=== PATIENT | male | born 1950 | race Hispanic/Latino ===

== ENCOUNTER → 2017-07-30 | Outpatient (CLI) | payer MEDICARE ==
[~2017-07-30] MED LIST: ALBUMIN (HUMAN) 25% 200 ML IV SCH; DOXA2TAB2 PO; FOLI1TAB15 PO; IRON1CAP30 PO; LACT10SO PO; MILK500C PO; OMEP20CA10 PO; SPIR50TA3 PO
[2017-07-30 08:18] LABS: BASOPHILS % (AUTO) 0.8 % (0.0-5.0); EOSINOPHILS % (AUTO) 0.7 % (0.0-8.0); HEMATOCRIT 25.9 % (42-54); LYMPHOCYTES % (AUTO) 14.7 % (21.0-51.0); MEAN CORPUSCULAR HEMOGLOBIN 36.3 pg (27.0-33.0); MEAN CORPUSCULAR HGB CONC 36.5 g/dL (32.0-36.0); MEAN CORPUSCULAR VOLUME 99.4 fL (79-99); MONOCYTES % (AUTO) 11.3 % (3.0-13.0); NEUTROPHILS % (AUTO) 72.5 % (40.0-77.0); PLATELET COUNT (AUTO) 62 K/uL (130-400); RED CELL DISTRIBUTION WIDTH 15.2 % (11.0-15.5); WHITE BLOOD COUNT (AUTO) 7.3 K/uL (4.8-10.8)
[2017-07-30 08:40] LABS: INR 1.3 (0.85-1.15); PROTHROMBIN TIME 13.6 SEC (9.6-11.6)
[2017-07-30 09:00] LABS: ALBUMIN 2.7 g/dL (3.5-5.0); BILIRUBIN,TOTAL 1.6 mg/dL (0.2-1.0); CREATININE 1.8 mg/dL (0.5-1.5); POTASSIUM 4.7 mmol/L (3.5-5.1); TOTAL PROTEIN, SERUM 6.3 g/dL (6.0-8.3)
[2017-07-30 09:12] LABS: PLATELET MORPHOLOGY COMMENT DECREASED
[2017-07-30 11:28] LABS: ALBUMIN,BODY FLUID < 0.6 g/dL
[2017-07-30 11:33] LABS: APPEARANCE BODY FLUID CLEAR (CLEAR); BODY FLUID RBC 147 /cu. mm.; BODY FLUID WBC 69 /cu. mm.; COLOR,BODY FLUID YELLOW (LT YELLOW); SPECIMENTYPE,BODY FLUID ASCITES; TOTAL VOLUME,BODY FLUID 6500 mL
[2017-07-30 11:51] LABS: BF LYMPHOCYTE 8 %; BF MESOTHELIAL 72 %; BF MONOCYTE 13 %
== END | disposition home or self-care (01) ==
LOC: RAH 07:38
PROVIDERS: ATTEND Internal Medicine
DX: R18.8 Other ascites (principal); K74.60 Unspecified cirrhosis of liver
CPT/HCPCS: 36415; 49083; 76700; 80053; 82042; 84157; 85025; 85610; 87071; 87205; 88108; 88305; 89051; 93975; P9046

== ENCOUNTER → 2017-08-12 | Outpatient (CLI) | payer MEDICARE ==
[~2017-08-12] MED LIST changes: +ALBUMIN (HUMAN) 25% 200 ML IV ONE; -ALBUMIN (HUMAN) 25% 200 ML IV SCH; -SPIR50TA3 PO; +SPIR50TA5 PO
[2017-08-12 12:16] LABS: APPEARANCE BODY FLUID CLEAR (CLEAR); COLOR,BODY FLUID YELLOW (LT YELLOW); SPECIMENTYPE,BODY FLUID ASCITES; TOTAL VOLUME,BODY FLUID 400 mL
[2017-08-12 12:17] LABS: BODY FLUID RBC 83 /cu. mm.; BODY FLUID WBC 60 /cu. mm.
[2017-08-12 12:20] LABS: BF LYMPHOCYTE 23 %; BF MESOTHELIAL 32 %; BF MONOCYTE 38 %
== END ==
LOC: RAH 08:26
PROVIDERS: ATTEND Internal Medicine
DX: R18.8 Other ascites (principal)
CPT/HCPCS: 49083; 87071; 87205; 88108; 88305; 88341; 88342; 89051; P9046

== ENCOUNTER → 2017-08-18 | Outpatient (CLI) | payer MEDICARE ==
[~2017-08-18] MED LIST changes: -ALBUMIN (HUMAN) 25% 200 ML IV ONE; +SPIR50TA3 PO; -SPIR50TA5 PO
== END | disposition home or self-care (01) ==
LOC: OIH 09:32
PROVIDERS: ATTEND Internal Medicine
DX: K74.60 Unspecified cirrhosis of liver (principal); R18.8 Other ascites; R16.1 Splenomegaly, not elsewhere classified; K57.30 Diverticulosis of large intestine without perforation or abscess without bleeding
CPT/HCPCS: 74176

== ENCOUNTER → 2017-08-20 | Outpatient (CLI) | payer MEDICARE ==
[~2017-08-20] MED LIST changes: +ALBUMIN (HUMAN) 25% 200 ML IV SCH
[2017-08-20 09:43] LABS: EOSINOPHILS % (AUTO) 1.3 % (0.0-8.0); HEMATOCRIT 29.5 % (42-54); LYMPHOCYTES % (AUTO) 16.5 % (21.0-51.0); MEAN CORPUSCULAR HEMOGLOBIN 36.3 pg (27.0-33.0); MEAN CORPUSCULAR HGB CONC 36.9 g/dL (32.0-36.0); MEAN CORPUSCULAR VOLUME 98.4 fL (79-99); MONOCYTES % (AUTO) 13.9 % (3.0-13.0); NEUTROPHILS % (AUTO) 67.3 % (40.0-77.0); PLATELET COUNT (AUTO) 78 K/uL (130-400); RED CELL DISTRIBUTION WIDTH 15.6 % (11.0-15.5); WHITE BLOOD COUNT (AUTO) 5.6 K/uL (4.8-10.8)
[2017-08-20 09:52] LABS: CREATININE 1.3 mg/dL (0.5-1.5); POTASSIUM 4.8 mmol/L (3.5-5.1)
[2017-08-20 09:59] LABS: ALBUMIN 2.6 g/dL (3.5-5.0); BILIRUBIN,TOTAL 1.9 mg/dL (0.2-1.0); TOTAL PROTEIN, SERUM 6.4 g/dL (6.0-8.3)
[2017-08-20 10:13] LABS: INR 1.34 (0.85-1.15)
[2017-08-20 16:42] LABS: APPEARANCE BODY FLUID CLEAR (CLEAR); BODY FLUID WBC 19 /cu. mm.; COLOR,BODY FLUID YELLOW (LT YELLOW); SPECIMENTYPE,BODY FLUID ASCITES; TOTAL VOLUME,BODY FLUID 8000 mL
[2017-08-20 16:43] LABS: BODY FLUID RBC 255 /cu. mm.
[2017-08-20 17:03] LABS: BF LYMPHOCYTE 58 %; BF MESOTHELIAL 1 %; BF MONOCYTE 5 %
== END | disposition home or self-care (01) ==
LOC: RAH 08:22
PROVIDERS: ATTEND Internal Medicine
DX: R18.8 Other ascites (principal)
CPT/HCPCS: 36415; 49083; 80053; 85025; 85610; 87071; 87205; 88108; 89051; P9046

== ENCOUNTER → 2017-08-27 | Outpatient (CLI) | payer MEDICARE ==
[2017-08-27 11:49] LABS: APPEARANCE BODY FLUID CLEAR (CLEAR); BODY FLUID RBC 201 /cu. mm.; BODY FLUID WBC 168 /cu. mm.; COLOR,BODY FLUID YELLOW (LT YELLOW); SPECIMENTYPE,BODY FLUID ASCITES; TOTAL VOLUME,BODY FLUID 7900 mL
[2017-08-27 12:03] LABS: BF LYMPHOCYTE 13 %; BF MESOTHELIAL 66 %; BF MONOCYTE 20 %
== END | disposition home or self-care (01) ==
LOC: RAH 08:12
PROVIDERS: ATTEND Internal Medicine Gastroenterology
DX: R18.8 Other ascites (principal)
CPT/HCPCS: 49083; 87071; 87205; 88108; 88305; 89051; P9046

== ENCOUNTER → 2017-09-04 | Outpatient (CLI) | payer MEDICARE ==
[2017-09-04 13:28] LABS: APPEARANCE BODY FLUID SLIGHTLY CLOUDY (CLEAR); COLOR,BODY FLUID YELLOW (LT YELLOW); SPECIMENTYPE,BODY FLUID ASCITES; TOTAL VOLUME,BODY FLUID 6000 mL
[2017-09-04 13:36] LABS: BF LYMPHOCYTE 28 %; BF MESOTHELIAL 2 %; BF MONOCYTE 47 %
[2017-09-04 13:45] LABS: BODY FLUID WBC 105 /cu. mm.
[2017-09-04 13:46] LABS: BODY FLUID RBC 325 /cu. mm.
== END | disposition home or self-care (01) ==
LOC: RAH 07:27
PROVIDERS: ATTEND Internal Medicine
DX: R18.8 Other ascites (principal)
CPT/HCPCS: 49083; 87071; 87205; 88108; 88305; 89051; P9046

== ENCOUNTER → 2017-09-10 | Outpatient (CLI) | payer MEDICARE ==
[2017-09-10 12:02] LABS: APPEARANCE BODY FLUID CLEAR (CLEAR); SPECIMENTYPE,BODY FLUID ASCITES
[2017-09-10 12:03] LABS: BODY FLUID RBC 281 /cu. mm.; BODY FLUID WBC 167 /cu. mm.; COLOR,BODY FLUID YELLOW (LT YELLOW)
[2017-09-10 12:05] LABS: TOTAL VOLUME,BODY FLUID 4000 mL
[2017-09-10 12:12] LABS: BF LYMPHOCYTE 23 %; BF MESOTHELIAL 67 %; BF MONOCYTE 9 %
== END | disposition home or self-care (01) ==
LOC: RAH 08:19
PROVIDERS: ATTEND Internal Medicine Gastroenterology
DX: R18.8 Other ascites (principal)
CPT/HCPCS: 49083; 87071; 87205; 88108; 88305; 89051; P9046

== ENCOUNTER 2017-09-16 07:41 | Day surgery (SDC) | payer MEDICARE ==
[~2017-09-16] VITALS: Ht 154.9 cm; Wt 56.5 kg
[2017-09-16 08:10] VITALS: BP 143/70
[2017-09-16] MEDS ORDERED: IRON1CAP30 PO ×2 (10:10)
[2017-09-16] MEDS ORDERED: LACT10SO PO ×2 (10:10)
[2017-09-16] MEDS ORDERED: FOLI1TAB15 PO ×2 (10:10)
[2017-09-16] MEDS ORDERED: OMEP20CA10 PO ×2 (10:10)
[2017-09-16] MEDS ORDERED: DOXA2TAB2 PO ×2 (10:10)
[2017-09-16] MEDS ORDERED: SPIR50TA5 PO ×2 (10:10)
[2017-09-16] MEDS ORDERED: MILK500C PO ×2 (10:10)
[2017-09-16] MEDS ORDERED: SODIUM CHLORIDE 0.9% 1000ML 1,000 ML IV ONE (10:15)
[2017-09-16] MEDS ORDERED: PROPOFOL 10 MG/ML 20ML VIAL IV ONE (10:48)
== END 2017-09-16 11:51 | disposition home or self-care (01) ==
LOC: SUH 07:41 → DAH 07:41 → SUH 11:51
PROVIDERS: ATTEND Internal Medicine
DX: K86.1 Other chronic pancreatitis (principal); K74.60 Unspecified cirrhosis of liver; I10 Essential (primary) hypertension; Z90.49 Acquired absence of other specified parts of digestive tract; Z79.899 Other long term (current) drug therapy
CPT/HCPCS: 43237; 82948; A4606; J2704; J7030; 43231

== ENCOUNTER → 2017-09-17 | Outpatient (CLI) | payer MEDICARE ==
[~2017-09-17] MED LIST changes: -SPIR50TA3 PO; +SPIR50TA5 PO
[2017-09-17 12:04] LABS: APPEARANCE BODY FLUID CLEAR (CLEAR); BODY FLUID RBC 128 /cu. mm.; BODY FLUID WBC 62 /cu. mm.; COLOR,BODY FLUID YELLOW (LT YELLOW); SPECIMENTYPE,BODY FLUID ASCITES; TOTAL VOLUME,BODY FLUID 6300 mL
[2017-09-17 12:08] LABS: BF LYMPHOCYTE 46 %; BF MESOTHELIAL 25 %; BF MONOCYTE 23 %
== END | disposition home or self-care (01) ==
LOC: RAH 08:13
PROVIDERS: ATTEND Internal Medicine
DX: R18.8 Other ascites (principal)
CPT/HCPCS: 49083; 87071; 87205; 88108; 88305; 88341; 88342; 89051; P9046

== ENCOUNTER → 2017-09-23 | Outpatient (CLI) | payer MEDICARE ==
[2017-09-23 08:28] LABS: BASOPHILS % (AUTO) 1.2 % (0.0-5.0); EOSINOPHILS % (AUTO) 1.7 % (0.0-8.0); LYMPHOCYTES % (AUTO) 17.1 % (21.0-51.0); MEAN CORPUSCULAR HEMOGLOBIN 33.8 pg (27.0-33.0); MEAN CORPUSCULAR VOLUME 96.6 fL (79-99); MONOCYTES % (AUTO) 15.1 % (3.0-13.0); NEUTROPHILS % (AUTO) 64.9 % (40.0-77.0); PLATELET COUNT (AUTO) 79 K/uL (130-400); RED CELL DISTRIBUTION WIDTH 14.6 % (11.0-15.5); WHITE BLOOD COUNT (AUTO) 4.2 K/uL (4.8-10.8)
[2017-09-23 08:42] LABS: BILIRUBIN,TOTAL 1.1 mg/dL (0.2-1.0); CREATININE 1.3 mg/dL (0.5-1.5); INR 1.18 (0.85-1.15); POTASSIUM 4.6 mmol/L (3.5-5.1); PROTHROMBIN TIME 12.1 SEC (9.6-11.6); TOTAL PROTEIN, SERUM 6.5 g/dL (6.0-8.3)
[2017-09-23 09:06] LABS: % IRON SATURATION 61.9 % (30-44)
[2017-09-23 10:34] LABS: APPEARANCE BODY FLUID CLEAR (CLEAR); COLOR,BODY FLUID YELLOW (LT YELLOW); SPECIMENTYPE,BODY FLUID ASCITES
[2017-09-23 10:35] LABS: BODY FLUID RBC 228 /cu. mm.; BODY FLUID WBC 133 /cu. mm.
[2017-09-23 11:10] LABS: BF LYMPHOCYTE 67 %; BF MESOTHELIAL 12 %; BF MONOCYTE 15 %
[2017-09-23 11:11] LABS: TOTAL VOLUME,BODY FLUID 4000 mL
== END | disposition home or self-care (01) ==
LOC: RAH 07:56
PROVIDERS: ATTEND Internal Medicine Gastroenterology
DX: R18.8 Other ascites (principal); K74.69 Other cirrhosis of liver
CPT/HCPCS: 36415; 49083; 80053; 82140; 82728; 83540; 83550; 85025; 85610; 87071; 87205; 88108; 89051; P9046

== ENCOUNTER → 2017-10-02 | Outpatient (CLI) | payer MEDICARE ==
[~2017-10-02] MED LIST changes: +LIDOCAINE HCL 1% 20 ML VIAL ONE
[2017-10-02 14:06] LABS: APPEARANCE BODY FLUID SLIGHTLY CLOUDY (CLEAR); COLOR,BODY FLUID YELLOW (LT YELLOW); SPECIMENTYPE,BODY FLUID ASCITES
[2017-10-02 14:07] LABS: TOTAL VOLUME,BODY FLUID 7500 mL
[2017-10-02 14:08] LABS: BODY FLUID RBC 200 /cu. mm.; BODY FLUID WBC 68 /cu. mm.
[2017-10-02 14:57] LABS: BF LYMPHOCYTE 20 %; BF MESOTHELIAL 1 %; BF MONOCYTE 41 %
== END | disposition home or self-care (01) ==
LOC: RAH 07:49
PROVIDERS: ATTEND Internal Medicine Gastroenterology
DX: R18.8 Other ascites (principal)
CPT/HCPCS: 49083; 87071; 87205; 88108; 89051; P9046

== ENCOUNTER → 2017-10-09 | Outpatient (CLI) | payer MEDICARE ==
[~2017-10-09] MED LIST changes: -LIDOCAINE HCL 1% 20 ML VIAL ONE
[2017-10-09 11:49] LABS: APPEARANCE BODY FLUID CLEAR (CLEAR); COLOR,BODY FLUID YELLOW (LT YELLOW); SPECIMENTYPE,BODY FLUID ASCITES; TOTAL VOLUME,BODY FLUID 5000 mL
[2017-10-09 11:50] LABS: BODY FLUID RBC 212 /cu. mm.; BODY FLUID WBC 183 /cu. mm.
[2017-10-09 12:09] LABS: BF LYMPHOCYTE 17 %; BF MESOTHELIAL 62 %; BF MONOCYTE 21 %
== END ==
LOC: RAH 07:54
PROVIDERS: ATTEND Internal Medicine Gastroenterology
DX: R18.8 Other ascites (principal)
CPT/HCPCS: 49083; 87071; 87205; 88108; 88305; 89051; P9046

== ENCOUNTER → 2017-10-29 | Outpatient (CLI) | payer MEDICARE ==
[~2017-10-29] MED LIST changes: +LIDOCAINE HCL 1% 20 ML VIAL ONE
[2017-10-29 08:20] LABS: EOSINOPHILS % (AUTO) 1.3 % (0.0-8.0); HEMATOCRIT 30.2 % (42-54); LYMPHOCYTES % (AUTO) 15.8 % (21.0-51.0); MEAN CORPUSCULAR HGB CONC 35.4 g/dL (32.0-36.0); MEAN CORPUSCULAR VOLUME 93.1 fL (79-99); NEUTROPHILS % (AUTO) 66.9 % (40.0-77.0); PLATELET COUNT (AUTO) 85 K/uL (130-400); RED BLOOD CELL COUNT(AUTO) 3.25 MIL/uL (4.50-6.20); WHITE BLOOD COUNT (AUTO) 5.7 K/uL (4.8-10.8)
[2017-10-29 08:31] LABS: INR 1.25 (0.85-1.15); PROTHROMBIN TIME 13.1 SEC (9.6-11.6)
[2017-10-29 08:32] LABS: ALBUMIN 2.9 g/dL (3.5-5.0); BILIRUBIN,TOTAL 1.1 mg/dL (0.2-1.0); CREATININE 1.3 mg/dL (0.5-1.5); POTASSIUM 5.3 mmol/L (3.5-5.1); TOTAL PROTEIN, SERUM 6.9 g/dL (6.0-8.3)
[2017-10-29 11:17] LABS: APPEARANCE BODY FLUID CLEAR (CLEAR); COLOR,BODY FLUID YELLOW (LT YELLOW); SPECIMENTYPE,BODY FLUID ASCITES
[2017-10-29 11:18] LABS: TOTAL VOLUME,BODY FLUID 5000 mL
[2017-10-29 11:21] LABS: BODY FLUID RBC 243 /cu. mm.; BODY FLUID WBC 94 /cu. mm.
[2017-10-29 11:25] LABS: BF LYMPHOCYTE 14 %; BF MESOTHELIAL 63 %; BF MONOCYTE 16 %
== END | disposition home or self-care (01) ==
LOC: RAH 08:49
PROVIDERS: ATTEND Internal Medicine Gastroenterology
DX: R18.8 Other ascites (principal)
CPT/HCPCS: 36415; 49083; 80053; 85025; 85610; 87071; 87205; 89051; P9046

== ENCOUNTER → 2017-11-06 | Outpatient (CLI) | payer MEDICARE ==
[~2017-11-06] MED LIST changes: -LIDOCAINE HCL 1% 20 ML VIAL ONE
[2017-11-06 13:52] LABS: APPEARANCE BODY FLUID CLEAR (CLEAR); BODY FLUID WBC 90 /cu. mm.; COLOR,BODY FLUID YELLOW (LT YELLOW); SPECIMENTYPE,BODY FLUID ASCITES; TOTAL VOLUME,BODY FLUID 4500 mL
[2017-11-06 13:53] LABS: BODY FLUID RBC 199 /cu. mm.
[2017-11-06 13:59] LABS: BF LYMPHOCYTE 57 %; BF MESOTHELIAL 20 %; BF MONOCYTE 21 %
== END | disposition home or self-care (01) ==
LOC: RAH 08:22
PROVIDERS: ATTEND Internal Medicine Gastroenterology
DX: R18.8 Other ascites (principal)
CPT/HCPCS: 49083; 87071; 87205; 88108; 88305; 89051; P9046

== ENCOUNTER → 2017-11-13 | Outpatient (CLI) | payer MEDICARE ==
[~2017-11-13] MED LIST changes: +ALBUMIN (HUMAN) 25% 200 ML IV ONE; +LIDOCAINE HCL 1% 20 ML VIAL ONE
[2017-11-13 10:23] LABS: SPECIMENTYPE,BODY FLUID ASCITES
[2017-11-13 10:24] LABS: APPEARANCE BODY FLUID SLIGHTLY CLOUDY (CLEAR); COLOR,BODY FLUID YELLOW (LT YELLOW)
[2017-11-13 10:27] LABS: TOTAL VOLUME,BODY FLUID 5000 mL
[2017-11-13 12:13] LABS: BODY FLUID RBC 950 /cu. mm.; BODY FLUID WBC 49 /cu. mm.
[2017-11-13 13:51] LABS: BF LYMPHOCYTE 33 %; BF MONOCYTE 44 %
== END | disposition home or self-care (01) ==
LOC: RAH 07:54
PROVIDERS: ATTEND Internal Medicine Gastroenterology
DX: R18.8 Other ascites (principal)
CPT/HCPCS: 49083; 87071; 87205; 89051; P9046

== ENCOUNTER → 2017-11-23 | Outpatient (CLI) | payer MEDICARE ==
[~2017-11-23] MED LIST changes: -ALBUMIN (HUMAN) 25% 200 ML IV ONE; -LIDOCAINE HCL 1% 20 ML VIAL ONE
[2017-11-23 09:41] LABS: BASOPHILS % (AUTO) 0.9 % (0.0-5.0); EOSINOPHILS % (AUTO) 1.6 % (0.0-8.0); HEMATOCRIT 28.9 % (42-54); LYMPHOCYTES % (AUTO) 13.6 % (21.0-51.0); MEAN CORPUSCULAR HEMOGLOBIN 32.4 pg (27.0-33.0); MEAN CORPUSCULAR HGB CONC 33.6 g/dL (32.0-36.0); MEAN CORPUSCULAR VOLUME 96.5 fL (79-99); MONOCYTES % (AUTO) 12.5 % (3.0-13.0); NEUTROPHILS % (AUTO) 71.4 % (40.0-77.0); PLATELET COUNT (AUTO) 93 K/uL (130-400); RED BLOOD CELL COUNT(AUTO) 2.99 MIL/uL (4.50-6.20); RED CELL DISTRIBUTION WIDTH 15.6 % (11.0-15.5); WHITE BLOOD COUNT (AUTO) 5.3 K/uL (4.8-10.8)
[2017-11-23 09:54] LABS: INR 1.23 (0.85-1.15); PROTHROMBIN TIME 12.9 SEC (9.6-11.6)
[2017-11-23 10:01] LABS: ALBUMIN 2.8 g/dL (3.5-5.0); BILIRUBIN,TOTAL 1.5 mg/dL (0.2-1.0); CREATININE 1.3 mg/dL (0.5-1.5); POTASSIUM 4.8 mmol/L (3.5-5.1); TOTAL PROTEIN, SERUM 6.7 g/dL (6.0-8.3)
[2017-11-23 17:20] LABS: APPEARANCE BODY FLUID CLEAR (CLEAR); COLOR,BODY FLUID LT YELLOW (LT YELLOW); SPECIMENTYPE,BODY FLUID ASCITES; TOTAL VOLUME,BODY FLUID 6000 mL
[2017-11-23 17:30] LABS: BODY FLUID RBC 325 /cu. mm.; BODY FLUID WBC 36 /cu. mm.
[2017-11-23 17:58] LABS: BF LYMPHOCYTE 21 %; BF MONOCYTE 58 %; BF OTHER CELLS 1
== END | disposition home or self-care (01) ==
LOC: RAH 08:53
PROVIDERS: ATTEND Internal Medicine Gastroenterology
DX: R18.8 Other ascites (principal)
CPT/HCPCS: 36415; 49083; 80053; 85025; 85610; 87071; 87205; 88108; 88305; 89051; P9046

== ENCOUNTER → 2017-11-27 | Outpatient (CLI) | payer MEDICARE ==
[~2017-11-27] MED LIST changes: +ALBUMIN (HUMAN) 25% 200 ML IV ONE; -ALBUMIN (HUMAN) 25% 200 ML IV SCH
[2017-11-27 11:17] LABS: APPEARANCE BODY FLUID SLIGHTLY CLOUDY (CLEAR); COLOR,BODY FLUID YELLOW (LT YELLOW); SPECIMENTYPE,BODY FLUID ASCITES; TOTAL VOLUME,BODY FLUID 3900 mL
[2017-11-27 11:25] LABS: BODY FLUID WBC 131 /cu. mm.
[2017-11-27 11:26] LABS: BODY FLUID RBC 225 /cu. mm.
[2017-11-27 11:51] LABS: BF LYMPHOCYTE 21 %; BF MESOTHELIAL 4 %; BF MONOCYTE 43 %
== END | disposition home or self-care (01) ==
LOC: RAH 07:58
PROVIDERS: ATTEND Internal Medicine Gastroenterology
DX: R18.8 Other ascites (principal)
CPT/HCPCS: 49083; 87071; 87205; 88108; 88305; 89051; P9046

== ENCOUNTER → 2017-12-04 | Outpatient (CLI) | payer MEDICARE ==
[~2017-12-04] MED LIST changes: -ALBUMIN (HUMAN) 25% 200 ML IV ONE; +ALBUMIN (HUMAN) 25% 200 ML IV SCH; +LIDOCAINE HCL 2% 20ML ONE
[2017-12-04 13:26] LABS: APPEARANCE BODY FLUID CLEAR (CLEAR); BODY FLUID WBC 90 /cu. mm.; COLOR,BODY FLUID YELLOW (LT YELLOW); SPECIMENTYPE,BODY FLUID ASCITES; TOTAL VOLUME,BODY FLUID 5000 mL
[2017-12-04 13:27] LABS: BODY FLUID RBC 2327 /cu. mm.
[2017-12-04 14:04] LABS: BF LYMPHOCYTE 33 %; BF MESOTHELIAL 39 %; BF MONOCYTE 24 %
== END | disposition home or self-care (01) ==
LOC: RAH 08:18
PROVIDERS: ATTEND Internal Medicine Gastroenterology
DX: R18.8 Other ascites (principal); Z90.49 Acquired absence of other specified parts of digestive tract; K29.50 Unspecified chronic gastritis without bleeding; Z98.890 Other specified postprocedural states; B18.2 Chronic viral hepatitis C; K86.1 Other chronic pancreatitis; K74.69 Other cirrhosis of liver
CPT/HCPCS: 49083; 87071; 87205; 88108; 88305; 89051; J3490; P9046

== ENCOUNTER → 2017-12-11 | Outpatient (CLI) | payer MEDICARE ==
[~2017-12-11] MED LIST changes: +LIDOCAINE HCL 1% 10 ML VIAL ONE; -LIDOCAINE HCL 2% 20ML ONE
[2017-12-11 13:52] LABS: APPEARANCE BODY FLUID SLIGHTLY CLOUDY (CLEAR); COLOR,BODY FLUID YELLOW (LT YELLOW); SPECIMENTYPE,BODY FLUID ASCITES
[2017-12-11 13:53] LABS: BODY FLUID RBC 425 /cu. mm.; BODY FLUID WBC 89 /cu. mm.; TOTAL VOLUME,BODY FLUID 5700 mL
[2017-12-11 14:35] LABS: BF LYMPHOCYTE 42 %; BF MESOTHELIAL 1 %; BF MONOCYTE 41 %
== END | disposition home or self-care (01) ==
LOC: RAH 07:51
PROVIDERS: ATTEND Internal Medicine Gastroenterology
DX: R18.8 Other ascites (principal); I10 Essential (primary) hypertension; B18.2 Chronic viral hepatitis C; K86.1 Other chronic pancreatitis; Z90.49 Acquired absence of other specified parts of digestive tract; K74.69 Other cirrhosis of liver; Z79.899 Other long term (current) drug therapy
CPT/HCPCS: 49083; 87071; 87205; 88108; 88305; 89051; J3490; P9046

== ENCOUNTER → 2017-12-18 | Outpatient (CLI) | payer MEDICARE ==
[~2017-12-18] MED LIST changes: -LIDOCAINE HCL 1% 10 ML VIAL ONE
[2017-12-18 12:22] LABS: APPEARANCE BODY FLUID CLEAR (CLEAR); BODY FLUID WBC 94 /cu. mm.; COLOR,BODY FLUID YELLOW (LT YELLOW); SPECIMENTYPE,BODY FLUID ASCITES; TOTAL VOLUME,BODY FLUID 5000 mL
[2017-12-18 12:23] LABS: BODY FLUID RBC 169 /cu. mm.
[2017-12-18 12:41] LABS: BF LYMPHOCYTE 19 %; BF MESOTHELIAL 26 %; BF MONOCYTE 21 %
== END | disposition home or self-care (01) ==
LOC: RAH 07:52
PROVIDERS: ATTEND Internal Medicine Gastroenterology
DX: R18.8 Other ascites (principal); I10 Essential (primary) hypertension; K74.60 Unspecified cirrhosis of liver; K73.9 Chronic hepatitis, unspecified; Z90.49 Acquired absence of other specified parts of digestive tract; Z98.890 Other specified postprocedural states; Z79.899 Other long term (current) drug therapy; Z83.3 Family history of diabetes mellitus
CPT/HCPCS: 49083; 87071; 87205; 88108; 88305; 89051; P9046

== ENCOUNTER → 2018-02-26 | Outpatient (CLI) | payer MEDICARE ==
[~2018-02-26] MED LIST changes: +LIDOCAINE HCL MPF 1% 5ML VIAL ONE
[2018-02-26 09:29] LABS: BASOPHILS % (AUTO) 0.6 % (0.0-5.0); EOSINOPHILS % (AUTO) 0.2 % (0.0-8.0); HEMATOCRIT 30.3 % (42-54); LYMPHOCYTES % (AUTO) 8.9 % (21.0-51.0); MEAN CORPUSCULAR HEMOGLOBIN 33.8 pg (27.0-33.0); MEAN CORPUSCULAR HGB CONC 34.2 g/dL (32.0-36.0); MEAN CORPUSCULAR VOLUME 98.8 fL (79-99); MONOCYTES % (AUTO) 10.1 % (3.0-13.0); NEUTROPHILS % (AUTO) 80.2 % (40.0-77.0); PLATELET COUNT (AUTO) 68 K/uL (130-400); RED BLOOD CELL COUNT(AUTO) 3.06 MIL/uL (4.50-6.20); RED CELL DISTRIBUTION WIDTH 15.9 % (11.0-15.5); WHITE BLOOD COUNT (AUTO) 6.1 K/uL (4.8-10.8)
[2018-02-26 09:43] LABS: INR 1.28 (0.85-1.15); PROTHROMBIN TIME 13.4 SEC (9.6-11.6)
[2018-02-26 10:22] LABS: ALBUMIN 3.2 g/dL (3.5-5.0); BILIRUBIN,TOTAL 1.4 mg/dL (0.2-1.0); CREATININE 1.5 mg/dL (0.5-1.5); POTASSIUM 5.7 mmol/L (3.5-5.1); TOTAL PROTEIN, SERUM 6.4 g/dL (6.0-8.3)
[2018-02-26 11:08] LABS: PLATELET MORPHOLOGY COMMENT DECREASED
[2018-02-26 12:05] LABS: SPECIMENTYPE,BODY FLUID ASCITES
[2018-02-26 12:06] LABS: APPEARANCE BODY FLUID CLEAR (CLEAR); BODY FLUID RBC 81 /cu. mm.; BODY FLUID WBC 42 /cu. mm.; COLOR,BODY FLUID YELLOW (LT YELLOW); TOTAL VOLUME,BODY FLUID 5300 mL
[2018-02-26 12:10] LABS: BF LYMPHOCYTE 48 %; BF MESOTHELIAL 46 %
== END | disposition home or self-care (01) ==
LOC: RAH 09:05
PROVIDERS: ATTEND Internal Medicine Gastroenterology
DX: K70.31 Alcoholic cirrhosis of liver with ascites (principal); Z90.49 Acquired absence of other specified parts of digestive tract; Z83.3 Family history of diabetes mellitus; B18.2 Chronic viral hepatitis C; Z86.010 Personal history of colon polyps; Z79.899 Other long term (current) drug therapy; Z79.84 Long term (current) use of oral hypoglycemic drugs; K29.50 Unspecified chronic gastritis without bleeding; I10 Essential (primary) hypertension; Z98.890 Other specified postprocedural states; R16.1 Splenomegaly, not elsewhere classified
CPT/HCPCS: 36415; 49083; 80053; 85025; 85610; 87071; 87205; 88108; 88305; 89051; J3490; P9046

== ENCOUNTER → 2018-03-05 | Outpatient (CLI) | payer MEDICARE ==
[~2018-03-05] MED LIST changes: +ALBUMIN (HUMAN) 25% 200 ML IV ONE; -ALBUMIN (HUMAN) 25% 200 ML IV SCH
[2018-03-05 14:17] LABS: BF LYMPHOCYTE 35 %; BF MESOTHELIAL 1 %; BF MONOCYTE 53 %
[2018-03-05 14:18] LABS: APPEARANCE BODY FLUID SLIGHTLY CLOUDY (CLEAR); COLOR,BODY FLUID YELLOW (LT YELLOW); SPECIMENTYPE,BODY FLUID ASCITES; TOTAL VOLUME,BODY FLUID 5000 mL
[2018-03-05 14:19] LABS: BODY FLUID WBC 52 /cu. mm.
[2018-03-05 14:20] LABS: BODY FLUID RBC 97 /cu. mm.
== END ==
LOC: RAH 08:01
PROVIDERS: ATTEND Internal Medicine Gastroenterology
DX: K70.31 Alcoholic cirrhosis of liver with ascites (principal); B18.2 Chronic viral hepatitis C; I10 Essential (primary) hypertension; R16.1 Splenomegaly, not elsewhere classified; K29.50 Unspecified chronic gastritis without bleeding; Z90.49 Acquired absence of other specified parts of digestive tract; Z83.3 Family history of diabetes mellitus; Z79.84 Long term (current) use of oral hypoglycemic drugs; Z79.899 Other long term (current) drug therapy; Z98.890 Other specified postprocedural states; Z86.010 Personal history of colon polyps; Z79.4 Long term (current) use of insulin
CPT/HCPCS: 49083; 87071; 87205; 88108; 88305; 89051; J3490; P9046

== ENCOUNTER → 2018-03-19 | Outpatient (CLI) | payer MEDICARE ==
[~2018-03-19] MED LIST changes: -LIDOCAINE HCL MPF 1% 5ML VIAL ONE
[2018-03-19 14:26] LABS: SPECIMENTYPE,BODY FLUID ASCITES
[2018-03-19 14:27] LABS: APPEARANCE BODY FLUID SLIGHTLY CLOUDY (CLEAR); COLOR,BODY FLUID YELLOW (LT YELLOW); TOTAL VOLUME,BODY FLUID 6200 mL
[2018-03-19 14:28] LABS: BODY FLUID RBC 150 /cu. mm.; BODY FLUID WBC 69 /cu. mm.
[2018-03-19 14:31] LABS: BF LYMPHOCYTE 19 %; BF MONOCYTE 43 %
== END | disposition home or self-care (01) ==
LOC: RAH 08:38
PROVIDERS: ATTEND Internal Medicine Gastroenterology
DX: R18.8 Other ascites (principal)
CPT/HCPCS: 49083; 87071; 87205; 88108; 88305; 89051; P9046

== ENCOUNTER → 2018-04-02 | Outpatient (CLI) | payer MEDICARE ==
[~2018-04-02] MED LIST changes: -ALBUMIN (HUMAN) 25% 200 ML IV ONE; +ALBUMIN (HUMAN) 25% 200 ML IV SCH
[2018-04-02 09:16] LABS: BASOPHILS % (AUTO) 1.2 % (0.0-5.0); EOSINOPHILS % (AUTO) 1.3 % (0.0-8.0); HEMATOCRIT 30.2 % (42-54); LYMPHOCYTES % (AUTO) 13.2 % (21.0-51.0); MEAN CORPUSCULAR HGB CONC 34.8 g/dL (32.0-36.0); MEAN CORPUSCULAR VOLUME 97.7 fL (79-99); MONOCYTES % (AUTO) 12.9 % (3.0-13.0); NEUTROPHILS % (AUTO) 71.4 % (40.0-77.0); NUCLEATED RED BLOOD CELLS 0.1 % (0.0-0.19); PLATELET COUNT (AUTO) 69 K/uL (130-400); RED BLOOD CELL COUNT(AUTO) 3.09 MIL/uL (4.50-6.20); RED CELL DISTRIBUTION WIDTH 14.4 % (11.0-15.5); WHITE BLOOD COUNT (AUTO) 5.4 K/uL (4.8-10.8)
[2018-04-02 09:27] LABS: INR 1.24 (0.85-1.15)
[2018-04-02 09:36] LABS: ALBUMIN 2.7 g/dL (3.5-5.0); BILIRUBIN,TOTAL 1.1 mg/dL (0.2-1.0); CREATININE 1.5 mg/dL (0.5-1.5); POTASSIUM 4.7 mmol/L (3.5-5.1); TOTAL PROTEIN, SERUM 6.4 g/dL (6.0-8.3)
[2018-04-02 14:25] LABS: APPEARANCE BODY FLUID SLIGHTLY CLOUDY (CLEAR); COLOR,BODY FLUID YELLOW (LT YELLOW); SPECIMENTYPE,BODY FLUID ASCITES; TOTAL VOLUME,BODY FLUID 5500 mL
[2018-04-02 14:26] LABS: BODY FLUID RBC 150 /cu. mm.; BODY FLUID WBC 64 /cu. mm.
[2018-04-02 14:30] LABS: BF LYMPHOCYTE 17 %; BF MONOCYTE 56 %
== END | disposition home or self-care (01) ==
LOC: RAH 08:33
PROVIDERS: ATTEND Internal Medicine Gastroenterology
DX: K74.69 Other cirrhosis of liver (principal); R18.8 Other ascites; C22.9 Malignant neoplasm of liver, not specified as primary or secondary; D64.9 Anemia, unspecified; B18.2 Chronic viral hepatitis C; K86.1 Other chronic pancreatitis; I10 Essential (primary) hypertension; Z79.899 Other long term (current) drug therapy; Z90.49 Acquired absence of other specified parts of digestive tract
CPT/HCPCS: 36415; 49083; 80053; 85025; 85610; 87071; 87205; 88108; 88305; 89051; 96365; A4215; P9046

== ENCOUNTER → 2018-04-09 | Outpatient (CLI) | payer MEDICARE ==
[2018-04-09 13:50] LABS: SPECIMENTYPE,BODY FLUID ASCITES
[2018-04-09 13:51] LABS: APPEARANCE BODY FLUID CLEAR (CLEAR); COLOR,BODY FLUID YELLOW (LT YELLOW); TOTAL VOLUME,BODY FLUID 1500 mL
[2018-04-09 13:52] LABS: BODY FLUID RBC 158 /cu. mm.; BODY FLUID WBC 98 /cu. mm.
[2018-04-09 14:02] LABS: BF LYMPHOCYTE 12 %; BF MESOTHELIAL 10 %; BF MONOCYTE 28 %
== END ==
LOC: RAH 09:29
PROVIDERS: ATTEND Internal Medicine Gastroenterology
DX: R18.8 Other ascites (principal)
CPT/HCPCS: 49083; 87071; 87205; 88108; 88305; 89051; 96365; P9046

== ENCOUNTER → 2018-04-16 | Outpatient (CLI) | payer MEDICARE ==
[~2018-04-16] MED LIST changes: +LIDOCAINE HCL MPF 1% 5ML VIAL ONE
[2018-04-16 14:14] LABS: APPEARANCE BODY FLUID SLIGHTLY CLOUDY (CLEAR); COLOR,BODY FLUID YELLOW (LT YELLOW); SPECIMENTYPE,BODY FLUID ASCITES; TOTAL VOLUME,BODY FLUID 5500 mL
[2018-04-16 14:15] LABS: BODY FLUID RBC 100 /cu. mm.; BODY FLUID WBC 89 /cu. mm.
[2018-04-16 14:24] LABS: BF LYMPHOCYTE 21 %; BF MONOCYTE 14 %
== END | disposition home or self-care (01) ==
LOC: RAH 07:53
PROVIDERS: ATTEND Internal Medicine Gastroenterology
DX: R18.8 Other ascites (principal)
CPT/HCPCS: 49083; 87071; 87205; 88108; 88305; 89051; A4215; J3490; P9046

== ENCOUNTER → 2018-04-23 | Outpatient (CLI) | payer MEDICARE ==
[~2018-04-23] MED LIST changes: +ALBUMIN (HUMAN) 25% 200 ML IV ONE; -ALBUMIN (HUMAN) 25% 200 ML IV SCH; -LIDOCAINE HCL MPF 1% 5ML VIAL ONE
[2018-04-23 09:25] LABS: BASOPHILS % (AUTO) 0.8 % (0.0-5.0); EOSINOPHILS % (AUTO) 1.7 % (0.0-8.0); HEMATOCRIT 30.1 % (42-54); LYMPHOCYTES % (AUTO) 8.6 % (21.0-51.0); MEAN CORPUSCULAR HEMOGLOBIN 34.6 pg (27.0-33.0); MEAN CORPUSCULAR HGB CONC 35.3 g/dL (32.0-36.0); MEAN CORPUSCULAR VOLUME 98.1 fL (79-99); NEUTROPHILS % (AUTO) 75.9 % (40.0-77.0); PLATELET COUNT (AUTO) 61 K/uL (130-400); RED BLOOD CELL COUNT(AUTO) 3.07 MIL/uL (4.50-6.20); RED CELL DISTRIBUTION WIDTH 14.8 % (11.0-15.5); WHITE BLOOD COUNT (AUTO) 5.3 K/uL (4.8-10.8)
[2018-04-23 09:42] LABS: ALBUMIN 3.8 g/dL (3.5-5.0); BILIRUBIN,TOTAL 1.2 mg/dL (0.2-1.0); CREATININE 1.2 mg/dL (0.5-1.5); POTASSIUM 4.3 mmol/L (3.5-5.1)
[2018-04-23 09:43] LABS: INR 1.28 (0.85-1.15); PROTHROMBIN TIME 13.4 SEC (9.6-11.6)
[2018-04-23 13:19] LABS: APPEARANCE BODY FLUID CLEAR (CLEAR); COLOR,BODY FLUID YELLOW (LT YELLOW); SPECIMENTYPE,BODY FLUID ASCITES
[2018-04-23 13:20] LABS: BODY FLUID WBC 139 /cu. mm.; TOTAL VOLUME,BODY FLUID 4400 mL
[2018-04-23 13:21] LABS: BODY FLUID RBC 198 /cu. mm.
[2018-04-23 13:54] LABS: BF LYMPHOCYTE 15 %; BF MESOTHELIAL 11 %; BF MONOCYTE 20 %
== END ==
LOC: RAH 09:02
PROVIDERS: ATTEND Internal Medicine Gastroenterology
DX: R18.8 Other ascites (principal)
CPT/HCPCS: 36415; 49083; 80053; 85025; 85610; 87071; 87205; 88108; 88305; 89051; 96365; A4215; P9046

== ENCOUNTER → 2018-04-30 | Outpatient (CLI) | payer MEDICARE ==
[~2018-04-30] MED LIST changes: -ALBUMIN (HUMAN) 25% 200 ML IV ONE; +ALBUMIN (HUMAN) 25% 200 ML IV SCH; +LIDOCAINE HCL 1% 20 ML VIAL ONE
[2018-04-30 08:24] LABS: BASOPHILS % (AUTO) 1.3 % (0.0-5.0); EOSINOPHILS % (AUTO) 3.1 % (0.0-8.0); HEMATOCRIT 26.9 % (42-54); MEAN CORPUSCULAR HEMOGLOBIN 33.8 pg (27.0-33.0); MEAN CORPUSCULAR HGB CONC 34.4 g/dL (32.0-36.0); MEAN CORPUSCULAR VOLUME 98.1 fL (79-99); MONOCYTES % (AUTO) 10.9 % (3.0-13.0); NEUTROPHILS % (AUTO) 71.7 % (40.0-77.0); PLATELET COUNT (AUTO) 65 K/uL (130-400); RED BLOOD CELL COUNT(AUTO) 2.75 MIL/uL (4.50-6.20); RED CELL DISTRIBUTION WIDTH 14.8 % (11.0-15.5); WHITE BLOOD COUNT (AUTO) 3.7 K/uL (4.8-10.8)
[2018-04-30 08:33] LABS: ALBUMIN 3.6 g/dL (3.5-5.0); BILIRUBIN,TOTAL 1.4 mg/dL (0.2-1.0); CREATININE 1.4 mg/dL (0.5-1.5); POTASSIUM 4.7 mmol/L (3.5-5.1); TOTAL PROTEIN, SERUM 6.4 g/dL (6.0-8.3)
[2018-04-30 08:57] LABS: INR 1.44 (0.85-1.15)
[2018-04-30 14:23] LABS: APPEARANCE BODY FLUID SLIGHTLY CLOUDY (CLEAR); COLOR,BODY FLUID YELLOW (LT YELLOW); SPECIMENTYPE,BODY FLUID ASCITES; TOTAL VOLUME,BODY FLUID 5000 mL
[2018-04-30 14:24] LABS: BODY FLUID RBC 150 /cu. mm.; BODY FLUID WBC 93 /cu. mm.
[2018-04-30 14:26] LABS: BF LYMPHOCYTE 48 %; BF MONOCYTE 32 %
== END | disposition home or self-care (01) ==
LOC: RAH 07:45
PROVIDERS: ATTEND Internal Medicine Gastroenterology
DX: R18.8 Other ascites (principal)
CPT/HCPCS: 36415; 49083; 80053; 85025; 85610; 87071; 87205; 88108; 88305; 89051; 96365; A4215; P9046

== ENCOUNTER → 2018-05-12 | Outpatient (CLI) | payer MEDICARE ==
[~2018-05-12] MED LIST changes: +ALBUMIN (HUMAN) 25% 200 ML IV ONE; -ALBUMIN (HUMAN) 25% 200 ML IV SCH
[2018-05-12 09:56] LABS: BASOPHILS % (AUTO) 1.1 % (0.0-5.0); EOSINOPHILS % (AUTO) 4.3 % (0.0-8.0); HEMATOCRIT 25.3 % (42-54); LYMPHOCYTES % (AUTO) 10.4 % (21.0-51.0); MEAN CORPUSCULAR HEMOGLOBIN 33.7 pg (27.0-33.0); MEAN CORPUSCULAR HGB CONC 34.9 g/dL (32.0-36.0); MEAN CORPUSCULAR VOLUME 96.4 fL (79-99); MONOCYTES % (AUTO) 15.5 % (3.0-13.0); NEUTROPHILS % (AUTO) 68.7 % (40.0-77.0); PLATELET COUNT (AUTO) 60 K/uL (130-400); RED BLOOD CELL COUNT(AUTO) 2.63 MIL/uL (4.50-6.20); RED CELL DISTRIBUTION WIDTH 14.8 % (11.0-15.5); WHITE BLOOD COUNT (AUTO) 4.4 K/uL (4.8-10.8)
[2018-05-12 10:11] LABS: INR 1.34 (0.85-1.15)
[2018-05-12 10:15] LABS: ALBUMIN 3.5 g/dL (3.5-5.0); BILIRUBIN,TOTAL 0.9 mg/dL (0.2-1.0); CREATININE 1.3 mg/dL (0.5-1.5); TOTAL PROTEIN, SERUM 6.4 g/dL (6.0-8.3)
[2018-05-12 12:33] LABS: APPEARANCE BODY FLUID CLEAR (CLEAR); BODY FLUID WBC 174 /cu. mm.; COLOR,BODY FLUID YELLOW (LT YELLOW); SPECIMENTYPE,BODY FLUID ASCITES; TOTAL VOLUME,BODY FLUID 2200 mL
[2018-05-12 12:34] LABS: BODY FLUID RBC 299 /cu. mm.
[2018-05-12 12:45] LABS: BF EOSINOPHIL 1 %; BF LYMPHOCYTE 13 %; BF MESOTHELIAL 16 %; BF MONOCYTE 21 %
== END ==
LOC: RAH 09:26
PROVIDERS: ATTEND Internal Medicine Gastroenterology
DX: R18.8 Other ascites (principal)
CPT/HCPCS: 36415; 49083; 80053; 85025; 85610; 87071; 87205; 88108; 88305; 89051; A4215; P9046

== ENCOUNTER → 2018-05-19 | Outpatient (CLI) | payer MEDICARE ==
[~2018-05-19] MED LIST changes: -ALBUMIN (HUMAN) 25% 200 ML IV ONE; +ALBUMIN (HUMAN) 25% 200 ML IV SCH; -LIDOCAINE HCL 1% 20 ML VIAL ONE
[2018-05-19 13:53] LABS: APPEARANCE BODY FLUID CLEAR (CLEAR); COLOR,BODY FLUID YELLOW (LT YELLOW); SPECIMENTYPE,BODY FLUID ASCITES
[2018-05-19 13:54] LABS: BODY FLUID WBC 174 /cu. mm.
[2018-05-19 13:55] LABS: BODY FLUID RBC 295 /cu. mm.
[2018-05-19 14:03] LABS: BF EOSINOPHIL 1 %; BF LYMPHOCYTE 9 %; BF MESOTHELIAL 13 %; BF MONOCYTE 20 %
[2018-05-19 14:33] LABS: TOTAL VOLUME,BODY FLUID 5.3 mL
== END ==
LOC: RAH 09:16
PROVIDERS: ATTEND Internal Medicine Gastroenterology
DX: R18.8 Other ascites (principal)
CPT/HCPCS: 49083; 87071; 87205; 88108; 88305; 89051; 96365; A4215; P9046

== ENCOUNTER → 2018-05-28 | Outpatient (CLI) | payer MEDICARE ==
[~2018-05-28] MED LIST changes: +ALBUMIN (HUMAN) 25% 200 ML IV ONE; -ALBUMIN (HUMAN) 25% 200 ML IV SCH; +INSU100I3 SQ; +LACT10SO32 PO
[2018-05-28 09:48] LABS: BASOPHILS % (AUTO) 0.6 % (0.0-5.0); EOSINOPHILS % (AUTO) 3.7 % (0.0-8.0); HEMATOCRIT 26.6 % (42-54); LYMPHOCYTES % (AUTO) 12.1 % (21.0-51.0); MEAN CORPUSCULAR HEMOGLOBIN 33.8 pg (27.0-33.0); MEAN CORPUSCULAR HGB CONC 34.5 g/dL (32.0-36.0); MEAN CORPUSCULAR VOLUME 97.8 fL (79-99); MONOCYTES % (AUTO) 10.9 % (3.0-13.0); NEUTROPHILS % (AUTO) 72.7 % (40.0-77.0); PLATELET COUNT (AUTO) 77 K/uL (130-400); RED BLOOD CELL COUNT(AUTO) 2.72 MIL/uL (4.50-6.20); RED CELL DISTRIBUTION WIDTH 16.2 % (11.0-15.5); WHITE BLOOD COUNT (AUTO) 6.1 K/uL (4.8-10.8)
[2018-05-28 10:03] LABS: ALBUMIN 3.1 g/dL (3.5-5.0); BILIRUBIN,TOTAL 1.4 mg/dL (0.2-1.0); CREATININE 1.5 mg/dL (0.5-1.5); POTASSIUM 4.7 mmol/L (3.5-5.1); TOTAL PROTEIN, SERUM 6.8 g/dL (6.0-8.3)
[2018-05-28 10:05] LABS: INR 1.28 (0.85-1.15); PROTHROMBIN TIME 13.4 SEC (9.6-11.6)
[2018-05-28 13:29] LABS: SPECIMENTYPE,BODY FLUID ASCITES
[2018-05-28 13:30] LABS: APPEARANCE BODY FLUID CLOUDY (CLEAR); BODY FLUID RBC 875 /cu. mm.; BODY FLUID WBC 106 /cu. mm.; COLOR,BODY FLUID LT YELLOW (LT YELLOW); TOTAL VOLUME,BODY FLUID 5100 mL
[2018-05-28 13:41] LABS: BF LYMPHOCYTE 32 %; BF MESOTHELIAL 33 %; BF MONOCYTE 1 %
== END ==
LOC: RAH 09:21
PROVIDERS: ATTEND Internal Medicine Gastroenterology
DX: R18.8 Other ascites (principal)
CPT/HCPCS: 36415; 49083; 80053; 85025; 85610; 87071; 87205; 89051; 96365; A4215; P9046

== ENCOUNTER 2018-06-01 07:37 | Day surgery (SDC) | payer MEDICARE ==
[~2018-06-01] VITALS: Ht 157.5 cm; Wt 55.8 kg
[~2018-06-01 07:37] MED LIST changes: -ALBUMIN (HUMAN) 25% 200 ML IV ONE; -LACT10SO PO; +SODIUM CHLORIDE 0.9% 1000ML 1,000 ML IV ONE
[2018-06-01 07:49] VITALS: BP 135/52
[2018-06-01] MEDS ORDERED: VITAMIN B12 PO (08:13)
[2018-06-01] MEDS ORDERED: HUMALOG SQ (08:13)
[2018-06-01] MEDS ORDERED: FURO20TA6 PO (08:13)
[2018-06-01] MEDS ORDERED: XIFAXAN PO (08:13)
[2018-06-01] MEDS ORDERED: LIDOCAINE HCL 1% 20 ML VIAL ONE (08:45)
[2018-06-01] MEDS ORDERED: PROPOFOL 1000 MG/100 ML 0 ML IV ONE (08:46)
[2018-06-01] MEDS ORDERED: PROPOFOL 10 MG/ML 20ML VIAL IV ONE ×2 (08:47)
[2018-06-01 08:55] VITALS: BP 114/58
[2018-06-01 09:00] VITALS: BP 115/61
[2018-06-01 09:07] VITALS: BP 111/62
[2018-06-01 09:14] VITALS: BP 125/60
== END 2018-06-01 09:25 | disposition home or self-care (01) ==
LOC: ENDO 07:37 → DAH 07:37 → ENDO 09:25
PROVIDERS: ATTEND Internal Medicine
DX: K29.50 Unspecified chronic gastritis without bleeding (principal); D50.9 Iron deficiency anemia, unspecified; K31.89 Other diseases of stomach and duodenum; Z79.899 Other long term (current) drug therapy; Z79.84 Long term (current) use of oral hypoglycemic drugs; Z79.4 Long term (current) use of insulin; I45.10 Unspecified right bundle-branch block; K70.31 Alcoholic cirrhosis of liver with ascites; Z90.49 Acquired absence of other specified parts of digestive tract
CPT/HCPCS: 43239; 82948 ×2; 88305; 88312; 93005; A4606; J2704 ×2; J7030

== ENCOUNTER → 2018-06-04 | Outpatient (CLI) | payer MEDICARE ==
[~2018-06-04] MED LIST changes: +ALBUMIN (HUMAN) 25% 200 ML IV ONE; +FURO20TA6 PO; +HUMALOG SQ; -INSU100I3 SQ; -SODIUM CHLORIDE 0.9% 1000ML 1,000 ML IV ONE; +VITAMIN B12 PO; +XIFAXAN PO
[2018-06-04 09:56] LABS: EOSINOPHILS % (AUTO) 3.1 % (0.0-8.0); HEMATOCRIT 28.2 % (42-54); MEAN CORPUSCULAR HGB CONC 33.6 g/dL (32.0-36.0); MEAN CORPUSCULAR VOLUME 98.2 fL (79-99); MONOCYTES % (AUTO) 15.3 % (3.0-13.0); NEUTROPHILS % (AUTO) 68.6 % (40.0-77.0); PLATELET COUNT (AUTO) 63 K/uL (130-400); RED BLOOD CELL COUNT(AUTO) 2.87 MIL/uL (4.50-6.20); RED CELL DISTRIBUTION WIDTH 15.2 % (11.0-15.5)
[2018-06-04 10:10] LABS: CREATININE 1.5 mg/dL (0.5-1.5); POTASSIUM 4.5 mmol/L (3.5-5.1)
[2018-06-04 10:12] LABS: INR 1.28 (0.85-1.15); PROTHROMBIN TIME 13.4 SEC (9.6-11.6)
[2018-06-04 10:14] LABS: ALBUMIN 3.1 g/dL (3.5-5.0); BILIRUBIN,TOTAL 1.6 mg/dL (0.2-1.0)
[2018-06-04 12:45] LABS: APPEARANCE BODY FLUID CLEAR (CLEAR); BODY FLUID WBC 65 /cu. mm.; COLOR,BODY FLUID YELLOW (LT YELLOW); SPECIMENTYPE,BODY FLUID ASCITES; TOTAL VOLUME,BODY FLUID 4000 mL
[2018-06-04 12:46] LABS: BODY FLUID RBC 365 /cu. mm.
[2018-06-04 13:13] LABS: BF LYMPHOCYTE 32 %; BF MESOTHELIAL 6 %; BF MONOCYTE 11 %
== END | disposition home or self-care (01) ==
LOC: RAH 08:06
PROVIDERS: ATTEND Internal Medicine Gastroenterology
DX: R18.8 Other ascites (principal)
CPT/HCPCS: 36415; 49083; 80053; 85025; 85610; 87071; 87205; 88108; 88305; 89051; 96365; A4215; P9046

== ENCOUNTER → 2018-06-11 | Outpatient (CLI) | payer MEDICARE ==
[~2018-06-11] MED LIST changes: -ALBUMIN (HUMAN) 25% 200 ML IV ONE; +ALBUMIN (HUMAN) 25% 200 ML IV SCH; +LIDOCAINE HCL 1% 20 ML VIAL ONE
[2018-06-11 09:29] LABS: EOSINOPHILS % (AUTO) 5.1 % (0.0-8.0); HEMATOCRIT 27.4 % (42-54); LYMPHOCYTES % (AUTO) 14.4 % (21.0-51.0); MEAN CORPUSCULAR HEMOGLOBIN 33.7 pg (27.0-33.0); MEAN CORPUSCULAR VOLUME 99.3 fL (79-99); MONOCYTES % (AUTO) 12.5 % (3.0-13.0); NUCLEATED RED BLOOD CELLS 0.1 % (0.0-0.19); PLATELET COUNT (AUTO) 64 K/uL (130-400); RED BLOOD CELL COUNT(AUTO) 2.76 MIL/uL (4.50-6.20); RED CELL DISTRIBUTION WIDTH 15.3 % (11.0-15.5); WHITE BLOOD COUNT (AUTO) 4.8 K/uL (4.8-10.8)
[2018-06-11 09:42] LABS: INR 1.3 (0.85-1.15); PROTHROMBIN TIME 13.6 SEC (9.6-11.6)
[2018-06-11 09:46] LABS: ALBUMIN 3.1 g/dL (3.5-5.0); BILIRUBIN,TOTAL 0.9 mg/dL (0.2-1.0); CREATININE 1.5 mg/dL (0.5-1.5); POTASSIUM 4.4 mmol/L (3.5-5.1); TOTAL PROTEIN, SERUM 6.8 g/dL (6.0-8.3)
[2018-06-11 15:04] LABS: SPECIMENTYPE,BODY FLUID ASCITES
[2018-06-11 15:05] LABS: APPEARANCE BODY FLUID SLIGHTLY CLOUDY (CLEAR); BODY FLUID RBC 255 /cu. mm.; BODY FLUID WBC 101 /cu. mm.; COLOR,BODY FLUID YELLOW (LT YELLOW); TOTAL VOLUME,BODY FLUID 5000 mL
[2018-06-11 15:12] LABS: BF LYMPHOCYTE 35 %; BF MONOCYTE 12 %
== END ==
LOC: RAH 08:45
PROVIDERS: ATTEND Internal Medicine Gastroenterology
DX: R18.8 Other ascites (principal)
CPT/HCPCS: 36415; 49083; 80053; 85025; 85610; 87071; 87205; 88108; 88305; 89051; 96365; A4215; P9046

== ENCOUNTER → 2018-06-18 | Outpatient (CLI) | payer MEDICARE ==
[2018-06-18 09:28] LABS: BASOPHILS % (AUTO) 0.9 % (0.0-5.0); EOSINOPHILS % (AUTO) 1.8 % (0.0-8.0); HEMATOCRIT 30.1 % (42-54); LYMPHOCYTES % (AUTO) 10.9 % (21.0-51.0); MEAN CORPUSCULAR HEMOGLOBIN 34.2 pg (27.0-33.0); MEAN CORPUSCULAR HGB CONC 34.4 g/dL (32.0-36.0); MEAN CORPUSCULAR VOLUME 99.3 fL (79-99); NEUTROPHILS % (AUTO) 75.4 % (40.0-77.0); PLATELET COUNT (AUTO) 65 K/uL (130-400); RED BLOOD CELL COUNT(AUTO) 3.03 MIL/uL (4.50-6.20); RED CELL DISTRIBUTION WIDTH 15.2 % (11.0-15.5); WHITE BLOOD COUNT (AUTO) 5.4 K/uL (4.8-10.8)
[2018-06-18 09:37] LABS: INR 1.23 (0.85-1.15); PROTHROMBIN TIME 12.9 SEC (9.6-11.6)
[2018-06-18 09:40] LABS: ALBUMIN 3.2 g/dL (3.5-5.0); BILIRUBIN,TOTAL 1.1 mg/dL (0.2-1.0); CREATININE 1.5 mg/dL (0.5-1.5)
--- NOTE | 2018-06-18 12:00 | NUR ---
U/S GD PARACENTESIS PROCEDURE PERFORMED BY DR Mimi MCCONNELL. PUNCTURE SITE RLQ AND PATIENT TOLERATED PROCEDURE WELL. TOTAL REMOVED 4 LITERS OF CLOUDY YELLOW FLUID. ALBUMIN 25% 50 GRAMS IV GIVEN DURING PROCEDURE. SPECIMEN SENT TO LAB. END OF PROCEDURE AT 1120. CATHETER REMOVED AND DRESSING APPLIED. NO BLEEDING NOTED. DISCHARGE INSTRUCTIONS GIVEN TO PATIENT AND VERBALIZED UNDERSTANDING. DISCHARGED VIA AMBULATION AT 1200. AAO X3 WITH NO C/O PAIN.
[2018-06-18 12:52] LABS: APPEARANCE BODY FLUID SLIGHTLY CLOUDY (CLEAR); COLOR,BODY FLUID YELLOW (LT YELLOW); SPECIMENTYPE,BODY FLUID ASCITES; TOTAL VOLUME,BODY FLUID 4000 mL
[2018-06-18 12:59] LABS: BODY FLUID WBC 139 /cu. mm.
[2018-06-18 13:00] LABS: BODY FLUID RBC 535 /cu. mm.
[2018-06-18 13:21] LABS: BF BASOPHIL 1 %; BF LYMPHOCYTE 13 %; BF MESOTHELIAL 15 %; BF MONOCYTE 14 %
== END | disposition home or self-care (01) ==
LOC: RAH 09:09
PROVIDERS: ATTEND Internal Medicine Gastroenterology
DX: R18.8 Other ascites (principal)
CPT/HCPCS: 36415; 49083; 80053; 85025; 85610; 87071; 87205; 88108; 89051; A4215; P9046

== ENCOUNTER 2018-06-21 07:19 | Day surgery (SDC) | payer MEDICARE ==
[2018-06-21] VITALS (9 sets, daily range): BP systolic 106–148; BP diastolic 45–59
[~2018-06-21] VITALS: Ht 157.5 cm; Wt 53.5 kg
[~2018-06-21 07:19] MED LIST changes: -ALBUMIN (HUMAN) 25% 200 ML IV SCH; -LIDOCAINE HCL 1% 20 ML VIAL ONE
[2018-06-21] MEDS ORDERED: SODIUM CHLORIDE 0.9% 1000ML 1,000 ML IV ONE (08:04)
[2018-06-21] MEDS ORDERED: LIDOCAINE HCL 1% 20 ML VIAL ONE (08:25)
[2018-06-21 08:28] LABS: BASOPHILS % (AUTO) 0.7 % (0.0-5.0); EOSINOPHILS % (AUTO) 1.6 % (0.0-8.0); LYMPHOCYTES % (AUTO) 9.8 % (21.0-51.0); MEAN CORPUSCULAR HEMOGLOBIN 33.1 pg (27.0-33.0); MEAN CORPUSCULAR HGB CONC 34.2 g/dL (32.0-36.0); MEAN CORPUSCULAR VOLUME 96.9 fL (79-99); MONOCYTES % (AUTO) 10.5 % (3.0-13.0); NEUTROPHILS % (AUTO) 77.4 % (40.0-77.0); NUCLEATED RED BLOOD CELLS 0.1 % (0.0-0.19); PLATELET COUNT (AUTO) 59 K/uL (130-400); RED BLOOD CELL COUNT(AUTO) 2.89 MIL/uL (4.50-6.20); RED CELL DISTRIBUTION WIDTH 14.9 % (11.0-15.5); WHITE BLOOD COUNT (AUTO) 5.6 K/uL (4.8-10.8)
[2018-06-21 08:41] LABS: INR 1.23 (0.85-1.15); PROTHROMBIN TIME 12.9 SEC (9.6-11.6)
--- NOTE | 2018-06-21 09:45 | NUR ---
NOTE PT SUPINE ON BED, EYES CLOSED, NOT IN ANY APPARENT DISTRESS. AT BEDSIDE.
--- NOTE | 2018-06-21 10:20 | NUR ---
PROCEDURE PATIENT SCHEDULED FOR U/S GD PARACENTESIS. IMAGES TAKEN AND REVIEWED BY DR Kd REED. NO FLUID SEEN AND PROCEDURE CANCELLED. Addendum: 06/21/18 at 1022 by RU PEREZ RN RN WRONG PATIENT
--- NOTE | 2018-06-21 10:45 | NUR ---
TO RAD PT TAKEN TO WHEEL SETTER VIA BED BY KELY VENCES AND KELY HOPKINS. PT STABLE. NOT IN ANY DISTRESS.
[2018-06-21] MEDS ORDERED: MIDAZOLAM HCL 1 MG/ML 2ML VIAL ONE (11:02)
[2018-06-21] MEDS ORDERED: FENTANYL CITRATE PF 50 MCG/1 ML 2ML VIAL ONE (11:02)
--- NOTE | 2018-06-21 11:50 | NUR ---
CT GD RT ILIAC BONE MARROW BX/ASPIRATION PROCEDURE PERFORMED BY DR Maria Teresa MCGOVERN. PUNCTURE SITE RT ILIAC AND PATIENT TOLERATED PROCEDURE WELL. SPECIMEN X 5 COLLECTED AND SENT TO LAB. END OF PROCEDURE AT 1140. BIOPSY NEEDLE REMOVED AND DRESSING APPLIED. NO BLEEDING NOTED. REPORT GIVEN TO Maria Teresa MALIK RN AND PATIENT TRANSPORTED TO DAY PATIENT 15 VIA BED AT 1150. AAO X3 WITH NO C/O PAIN.
--- NOTE | 2018-06-21 11:54 | NUR ---
RECEIVE PT RECEIVED FROM [facility] VIA BED AWAKE ALERT ORIENTED X3. PT STABLE. DENIES PAIN, NO COMPLAINTS MADE. NOT IN ANY APPARENT DISTRESS. DRESSING TO MID LOWER BACK DRY AND INTACT, PINPOINT PINKISH DOT NOTED. NO ACTIVE OOZING OR BLEEDING NOTED. PUNCTURE SITE SOFT. CALL RAMIRES WITHIN REACH. WILL CALL FOR FAMILY TO COME IN. Addendum: 06/21/18 at 1242 by TOSHIA MALIK RN RN ADDENDUM: PER PT AND , PT'S RIGHT LEG AND FOOT HAS ALWAYS BEEN SWOLLEN, SWELLING WAS EVEN WORSE IN THE PAST, HAS GONE DOWN WHEN STARTING TO TAKE DIURETICS.
--- NOTE | 2018-06-21 11:55 | NUR ---
DIET PER RU PEREZ, RN, PT MAY RESUME PREVIOUS DIET PER DR. MCGOVERN.
--- NOTE | 2018-06-21 12:37 | NUR ---
NOTE PT TOLERATED DIET WELL.
--- NOTE | 2018-06-21 12:45 | NUR ---
ASSESS DRESSING TO LOWER BACK WITH PINK SHADOW DRAINAGE NOTED, VERY SCANT, SITE REMAINS SOFT, NO ACTIVE OOZING NO HEMATOMA NOTED. PT DENIES PAIN.
--- NOTE | 2018-06-21 13:30 | NUR ---
ASSESS PT COMFORTABLE IN BED. NOT IN ANY APPARENT DISTRESS. DRESSING TO MID LOWER BACK REMAINS THE SAME, NO CHANGES FROM PREVIOUS CHECK, DRY AND INTACT, NO FURTHER OOZING NOTED, SITE SOFT NO HEMATOMA NOTED. PT DENIES PAIN.
--- NOTE | 2018-06-21 14:28 | NUR ---
ASSESS PT COMFORTABLE IN BED, NO COMPLAINTS MADE, NOT IN ANY APPARENT DISTRESS. DRESSING TO MID LOWER BACK DRY AND INTACT, NO CHANGES, NO ACTIVE/FURTHER OOZING NO HEMATOMA NOTED. SITE SOFT, NO HEMATOMA NOTED. PT DENIES PAIN.
--- NOTE | 2018-06-21 15:10 | NUR ---
DISCHARGE PT DISCHARGED VIA WHEELCHAIR WITH . PT STABLE. NO COMPLAINTS MADE. NOT IN ANY APPARENT DISTRESS. DENIES PAIN. DRESSING TO MID LOWER BACK REMAINS DRY AND INTACT, NO FURTHER OR ACTIVE OOZING NOTED, SITE SOFT, NO HEMATOMA NOTED. PT VOIDED AND HAD A BM PRIOR TO DISCHARGE. DISCHARGE INSTRUCTIONS GIVEN TO AND PT. VERBALIZED UNDERSTANDING. PER , PT HAS AN EXISTING APPT WITH DR. SANCHES, INSTRUCTED TO KEEP FOLLOW UP APPT.
== END 2018-06-21 15:10 | disposition home or self-care (01) ==
LOC: DAH 07:19 → EDSTATUS 08:00 → DAH 15:10
PROVIDERS: ATTEND Internal Medicine Medical Oncology
DX: D61.818 Other pancytopenia (principal); I11.0 Hypertensive heart disease with heart failure; I50.9 Heart failure, unspecified; K21.9 Gastro-esophageal reflux disease without esophagitis; B19.20 Unspecified viral hepatitis C without hepatic coma; E55.9 Vitamin D deficiency, unspecified; E11.9 Type 2 diabetes mellitus without complications; N40.0 Benign prostatic hyperplasia without lower urinary tract symptoms
CPT/HCPCS: 36415; 38222; 77012; 82948 ×2; 85025; 85097; 85610; 85730; 88305; 88311; 88312; 88313; A4606; C1830; J2250; J3010; J7030; 77002; 99152

== ENCOUNTER → 2018-06-25 | Outpatient (CLI) | payer MEDICARE ==
[~2018-06-25] MED LIST changes: +ALBUMIN (HUMAN) 25% 200 ML IV SCH; +LIDOCAINE HCL 1% 20 ML VIAL ONE
[2018-06-25 09:42] LABS: BASOPHILS % (AUTO) 0.7 % (0.0-5.0); EOSINOPHILS % (AUTO) 3.4 % (0.0-8.0); HEMATOCRIT 29.5 % (42-54); MEAN CORPUSCULAR HGB CONC 33.8 g/dL (32.0-36.0); MEAN CORPUSCULAR VOLUME 97.5 fL (79-99); MONOCYTES % (AUTO) 9.6 % (3.0-13.0); NEUTROPHILS % (AUTO) 70.3 % (40.0-77.0); NUCLEATED RED BLOOD CELLS 0.1 % (0.0-0.19); PLATELET COUNT (AUTO) 62 K/uL (130-400); RED BLOOD CELL COUNT(AUTO) 3.02 MIL/uL (4.50-6.20); RED CELL DISTRIBUTION WIDTH 14.7 % (11.0-15.5); WHITE BLOOD COUNT (AUTO) 4.8 K/uL (4.8-10.8)
[2018-06-25 09:56] LABS: INR 1.25 (0.85-1.15); PROTHROMBIN TIME 13.1 SEC (9.6-11.6)
[2018-06-25 09:58] LABS: ALBUMIN 3.3 g/dL (3.5-5.0); BILIRUBIN,TOTAL 0.8 mg/dL (0.2-1.0); CREATININE 1.7 mg/dL (0.5-1.5); POTASSIUM 4.2 mmol/L (3.5-5.1); TOTAL PROTEIN, SERUM 7.1 g/dL (6.0-8.3)
[2018-06-25 10:00] LABS: PLATELET MORPHOLOGY COMMENT SLIDE REVIEWED
--- NOTE | 2018-06-25 12:20 | NUR ---
U/S GD PARACENTESIS PROCEDURE PERFORMED BY DR Antonella FLEMING. PUNCTURE SITE RLQ AND TOTAL REMOVED 3.7 LITERS OF CLOUDY YELLOW FLUID. ALBUMIN 25A5 50 GRAMS IV GIVEN DURING PROCEDURE AND SPECIMEN SENT TO LAB. END OF PROCEDURE AT 1145. CATHETER REMOVED AND DRESSING APPLIED. NO BLEEDING NOTED. DISCHARGE INSTRUCTIONS GIVEN AND PATIENT VERBALIZED UNDERSTANDING. DISCHARGED VIA AMBULTION AT 1220.
[2018-06-25 14:09] LABS: APPEARANCE BODY FLUID CLOUDY (CLEAR); SPECIMENTYPE,BODY FLUID ASCITES
[2018-06-25 14:10] LABS: COLOR,BODY FLUID YELLOW (LT YELLOW); TOTAL VOLUME,BODY FLUID 3700 mL
[2018-06-25 14:12] LABS: BODY FLUID WBC 118 /cu. mm.
[2018-06-25 14:13] LABS: BODY FLUID RBC 925 /cu. mm.
[2018-06-25 14:17] LABS: BF EOSINOPHIL 1 %; BF LYMPHOCYTE 51 %; BF MESOTHELIAL 1 %; BF MONOCYTE 20 %
== END | disposition home or self-care (01) ==
LOC: RAH 09:13
PROVIDERS: ATTEND Internal Medicine Gastroenterology
DX: R18.8 Other ascites (principal)
CPT/HCPCS: 36415; 49083; 80053; 85025; 85610; 87071; 87205; 89051; 96365; A4215; P9046; 88108; 88305

== ENCOUNTER → 2018-07-02 | Outpatient (CLI) | payer MEDICARE ==
[~2018-07-02] MED LIST changes: -LIDOCAINE HCL 1% 20 ML VIAL ONE
[2018-07-02 10:25] LABS: BASOPHILS % (AUTO) 0.5 % (0.0-5.0); EOSINOPHILS % (AUTO) 1.7 % (0.0-8.0); HEMATOCRIT 27.3 % (42-54); MEAN CORPUSCULAR HGB CONC 35.1 g/dL (32.0-36.0); MONOCYTES % (AUTO) 9.1 % (3.0-13.0); NEUTROPHILS % (AUTO) 81.7 % (40.0-77.0); PLATELET COUNT (AUTO) 64 K/uL (130-400); RED BLOOD CELL COUNT(AUTO) 2.81 MIL/uL (4.50-6.20); RED CELL DISTRIBUTION WIDTH 14.8 % (11.0-15.5); WHITE BLOOD COUNT (AUTO) 6.5 K/uL (4.8-10.8)
[2018-07-02 10:28] LABS: ALBUMIN 3.2 g/dL (3.5-5.0); CREATININE 1.6 mg/dL (0.5-1.5); POTASSIUM 4.9 mmol/L (3.5-5.1); TOTAL PROTEIN, SERUM 7.1 g/dL (6.0-8.3)
[2018-07-02 10:31] LABS: INR 1.21 (0.85-1.15); PROTHROMBIN TIME 12.7 SEC (9.6-11.6)
--- NOTE | 2018-07-02 10:45 | NUR ---
U/S GD PARACENTESIS PROCEDURE PERFORMED BY DR VALERA. PUNCTURE SITE LEFT SIDE ABDOMEN AND PATIENT TOLERATED PROCEDURE WELL. TOTAL REMOVED 3.0 LITERS OF CLOUDY YELLOW FLUID. END OF PROCEDURE AT 1105. CATHETER REMOVED AND DRESSING APPLIED. NO BLEEDING NOTED. SPECIMEN SENT TO LAB. ALBUMIN 25% 50 GRAMS GIVEN TO PIV STARTED TO RH 22G X 1 STICK. PIV DC'D, BANDAID APPLIED. DISCHARGE INSTRUCTIONS GIVEN TO PATIENT AND VERBALIZED UNDERSTANDING. DISCHARGED AMBULATORY. AAO X3 WITH NO C/O PAIN.
[2018-07-02 12:10] LABS: BF LYMPHOCYTE 19 %; BF MESOTHELIAL 10 %; BF MONOCYTE 19 %
[2018-07-02 12:14] LABS: APPEARANCE BODY FLUID SLIGHTLY CLOUDY (CLEAR); COLOR,BODY FLUID YELLOW (LT YELLOW); SPECIMENTYPE,BODY FLUID ASCITES; TOTAL VOLUME,BODY FLUID 3000 mL
[2018-07-02 12:15] LABS: BODY FLUID RBC 3134 /cu. mm.; BODY FLUID WBC 410 /cu. mm.
== END ==
LOC: RAH 09:55
PROVIDERS: ATTEND Internal Medicine Gastroenterology
DX: R18.8 Other ascites (principal); Z79.01 Long term (current) use of anticoagulants
CPT/HCPCS: 36415; 49083; 80053; 85025; 85610; 87071; 87205; 88108; 88305; 89051; 96365; A4215; P9046

== ENCOUNTER → 2018-07-09 | Outpatient (CLI) | payer MEDICARE ==
[2018-07-09 10:09] LABS: BASOPHILS % (AUTO) 0.9 % (0.0-5.0); MEAN CORPUSCULAR HEMOGLOBIN 32.9 pg (27.0-33.0); MEAN CORPUSCULAR HGB CONC 33.7 g/dL (32.0-36.0); MEAN CORPUSCULAR VOLUME 97.7 fL (79-99); MONOCYTES % (AUTO) 9.5 % (3.0-13.0); NEUTROPHILS % (AUTO) 76.6 % (40.0-77.0); PLATELET COUNT (AUTO) 61 K/uL (130-400); RED BLOOD CELL COUNT(AUTO) 2.87 MIL/uL (4.50-6.20); RED CELL DISTRIBUTION WIDTH 14.8 % (11.0-15.5); WHITE BLOOD COUNT (AUTO) 5.8 K/uL (4.8-10.8)
[2018-07-09 10:18] LABS: INR 1.21 (0.85-1.15); PROTHROMBIN TIME 12.7 SEC (9.6-11.6)
[2018-07-09 10:51] LABS: ALBUMIN 3.3 g/dL (3.5-5.0); BILIRUBIN,TOTAL 1.1 mg/dL (0.2-1.0); CREATININE 1.5 mg/dL (0.5-1.5); POTASSIUM 4.4 mmol/L (3.5-5.1); TOTAL PROTEIN, SERUM 6.9 g/dL (6.0-8.3)
--- NOTE | 2018-07-09 12:04 | NUR ---
U/S GD PARACENTESIS PROCEDURE PERFORMED BY DR Mimi MCCONNELL. PUNCTURE SITE RLQ AND PATIENT TOLERATED PROCEDURE WELL. TOTAL REMOVED 3 LITERS OF CLOUDY YELLOW FLUID. ALBUMIN 25% 50 GRAMS IV GIVEN DURING PROCEDURE. SPECIMEN SENT TO LAB. END OF PROCEDURE AT 1130. CATHETER REMOVED AND DRESSING APPLIED. NO BLEEDING NOTED. DISCHARGE INSTRUCTIONS GIVEN TO PATIENT AND VERBALIZED UNDERSTANDING. DISCHARGED VIA AMBULATION AT 1200. AAO X3 WITH NO C/O PAIN.
[2018-07-09 14:18] LABS: APPEARANCE BODY FLUID CLOUDY (CLEAR); COLOR,BODY FLUID YELLOW (LT YELLOW); SPECIMENTYPE,BODY FLUID ASCITES; TOTAL VOLUME,BODY FLUID 3000 mL
[2018-07-09 14:19] LABS: BODY FLUID RBC 1125 /cu. mm.; BODY FLUID WBC 113 /cu. mm.
[2018-07-09 14:23] LABS: BF LYMPHOCYTE 52 %; BF MONOCYTE 38 %
== END | disposition home or self-care (01) ==
LOC: RAH 09:40
PROVIDERS: ATTEND Internal Medicine Gastroenterology
DX: R18.8 Other ascites (principal); Z79.01 Long term (current) use of anticoagulants
CPT/HCPCS: 36415; 49083; 80053; 85025; 85610; 87071; 87205; 88108; 88305; 89051; 96365; A4215; P9046

== ENCOUNTER → 2018-07-16 | Outpatient (CLI) | payer MEDICARE ==
[~2018-07-16] MED LIST changes: +LIDOCAINE HCL 1% 20 ML VIAL ONE
--- NOTE | 2018-07-16 11:57 | NUR ---
U/S GD PARACENTESIS PROCEDURE PERFORMED BY DR Antonella FLEMING. PUNCTURE SITE RLQ AND PATIENT TOLERATED PROCEDURE WELL. TOTAL REMOVED 3 LITERS OF CLOUDY YELLOW FLUID. ALBUMIN 25% 50 GRAMS IV GIVEN DURING PROCEDURE AND SPECIMEN SENT TO LAB. END OF PROCEDURE AT 1130. CATHETER REMOVED AND DRESSING APPLIED. NO BLEEDING NOTED. DISCHARGE INSTRUCTIONS GIVEN TO PATIENT AND VERBALIZED UNDERSTANDING. DISCHARGED VIA AMBULATION AT 1200. AAO X3 WITH NO C/O PAIN.
[2018-07-16 13:12] LABS: APPEARANCE BODY FLUID CLOUDY (CLEAR); BODY FLUID RBC 554 /cu. mm.; BODY FLUID WBC 169 /cu. mm.; COLOR,BODY FLUID LT YELLOW (LT YELLOW); SPECIMENTYPE,BODY FLUID ASCITES; TOTAL VOLUME,BODY FLUID 3000 mL
[2018-07-16 13:21] LABS: BF LYMPHOCYTE 19 %; BF MESOTHELIAL 10 %; BF MONOCYTE 17 %
== END | disposition home or self-care (01) ==
LOC: RAH 09:18
PROVIDERS: ATTEND Internal Medicine Gastroenterology
DX: R18.8 Other ascites (principal)
CPT/HCPCS: 49083; 87071; 87205; 88108; 88305; 89051; 96365; A4215; P9046

== ENCOUNTER → 2018-07-30 | Outpatient (CLI) | payer MEDICARE ==
[~2018-07-30] MED LIST changes: +ALBUMIN (HUMAN) 25% 200 ML IV ONE; -ALBUMIN (HUMAN) 25% 200 ML IV SCH; -LIDOCAINE HCL 1% 20 ML VIAL ONE
[2018-07-30 08:45] LABS: BASOPHILS % (AUTO) 0.5 % (0.0-5.0); EOSINOPHILS % (AUTO) 17.5 % (0.0-8.0); HEMATOCRIT 27.4 % (42-54); LYMPHOCYTES % (AUTO) 11.9 % (21.0-51.0); MEAN CORPUSCULAR HEMOGLOBIN 33.5 pg (27.0-33.0); MEAN CORPUSCULAR HGB CONC 34.6 g/dL (32.0-36.0); MEAN CORPUSCULAR VOLUME 96.9 fL (79-99); NEUTROPHILS % (AUTO) 58.1 % (40.0-77.0); PLATELET COUNT (AUTO) 63 K/uL (130-400); RED BLOOD CELL COUNT(AUTO) 2.83 MIL/uL (4.50-6.20); RED CELL DISTRIBUTION WIDTH 15.3 % (11.0-15.5); WHITE BLOOD COUNT (AUTO) 4.8 K/uL (4.8-10.8)
[2018-07-30 09:00] LABS: CREATININE 1.4 mg/dL (0.5-1.5); INR 1.3 (0.85-1.15); POTASSIUM 4.3 mmol/L (3.5-5.1); PROTHROMBIN TIME 13.6 SEC (9.6-11.6)
[2018-07-30 09:04] LABS: ALBUMIN 2.9 g/dL (3.5-5.0); TOTAL PROTEIN, SERUM 6.6 g/dL (6.0-8.3)
--- NOTE | 2018-07-30 11:25 | NUR ---
U/S GD PARACENTESIS PROCEDURE PERFORMED BY DR REED. PUNCTURE SITE RIGHT SIDE ABDOMEN AND PATIENT TOLERATED PROCEDURE WELL. TOTAL REMOVED 3.6 LITERS OF CLOUDY YELLOW FLUID. END OF PROCEDURE AT 1145. CATHETER REMOVED AND DRESSING APPLIED. NO BLEEDING NOTED. SPECIMEN SENT TO LAB. ALBUMIN 25 % 50 GRAMS GIVEN IV PER MD ORDERS. DISCHARGE INSTRUCTIONS GIVEN TO PATIENT AND VERBALIZED UNDERSTANDING. DISCHARGED AMBULATORY, STABLE, AAO X3 WITH NO C/O PAIN.
[2018-07-30 12:41] LABS: APPEARANCE BODY FLUID CLEAR (CLEAR); BODY FLUID WBC 167 /cu. mm.; COLOR,BODY FLUID YELLOW (LT YELLOW); SPECIMENTYPE,BODY FLUID ASCITES; TOTAL VOLUME,BODY FLUID 3600 mL
[2018-07-30 12:42] LABS: BODY FLUID RBC 253 /cu. mm.
[2018-07-30 13:04] LABS: BF LYMPHOCYTE 9 %; BF MESOTHELIAL 7 %; BF MONOCYTE 10 %
== END ==
LOC: RAH 08:01
PROVIDERS: ATTEND Internal Medicine Gastroenterology
DX: R18.8 Other ascites (principal); Z79.01 Long term (current) use of anticoagulants
CPT/HCPCS: 36415; 49083; 80053; 85025; 85610; 87071; 87205; 88108; 88305; 89051; 96365; A4215; P9046

== ENCOUNTER → 2018-08-13 | Outpatient (CLI) | payer MEDICARE ==
[~2018-08-13] MED LIST changes: -ALBUMIN (HUMAN) 25% 200 ML IV ONE; +LIDOCAINE HCL 1% 20 ML VIAL ONE
[2018-08-13 09:27] LABS: BASOPHILS % (AUTO) 0.7 % (0.0-5.0); EOSINOPHILS % (AUTO) 6.1 % (0.0-8.0); HEMATOCRIT 29.6 % (42-54); LYMPHOCYTES % (AUTO) 11.6 % (21.0-51.0); MEAN CORPUSCULAR HEMOGLOBIN 33.5 pg (27.0-33.0); MEAN CORPUSCULAR HGB CONC 34.2 g/dL (32.0-36.0); MEAN CORPUSCULAR VOLUME 97.8 fL (79-99); MONOCYTES % (AUTO) 10.8 % (3.0-13.0); NEUTROPHILS % (AUTO) 70.8 % (40.0-77.0); PLATELET COUNT (AUTO) 65 K/uL (130-400); RED BLOOD CELL COUNT(AUTO) 3.02 MIL/uL (4.50-6.20); RED CELL DISTRIBUTION WIDTH 15.5 % (11.0-15.5); WHITE BLOOD COUNT (AUTO) 5.2 K/uL (4.8-10.8)
--- NOTE | 2018-08-13 09:31 | NUR ---
ALBUMIN INFUSION 2.4 LITERS OF CLOUDY YELLOW FLUID REMOVED. PATIENT DID NOT MEET CRITERIA FOR ALBUMIN INFUSION PER PROTOCOL. NO ALBUMIN GIVEN ORDERED BY DR Alina GALE. Addendum: 08/13/18 at 1401 by RU PEREZ RN RN CORRECTION 3.8 LITERS REMOVED
[2018-08-13 09:37] LABS: INR 1.22 (0.85-1.15); PROTHROMBIN TIME 12.8 SEC (9.6-11.6)
[2018-08-13 09:39] LABS: ALBUMIN 2.8 g/dL (3.5-5.0); CREATININE 1.5 mg/dL (0.5-1.5); POTASSIUM 5.1 mmol/L (3.5-5.1); TOTAL PROTEIN, SERUM 7.3 g/dL (6.0-8.3)
--- NOTE | 2018-08-13 09:45 | NUR ---
U/S GD PARACENTESIS PROCEDURE PERFORMED BY DR Mimi MCCONNELL. PUNCTURE SITE LLQ AND PATIENT TOLERATED PROCEDURE WELL. TOTAL REMOVED 2.4 LITERS OF CLOUDY YELLOW FLUID. END OF PROCEDURE AT 0915. CATHETER REMOVED AND DRESSING APPLIED. NO BLEEDING NOTED. DISCHARGE INSTRUCTIONS GIVEN TO PATIENT AND VERBALIZED UNDERSTANDING. DISCHARGED VIA AMBULATION AT 0945. AAO X3 WITH NO C/O PAIN. Addendum: 08/13/18 at 1401 by RU PEREZ RN RN CORRECTION 3.8 LITERS REMOVED AND SPECIMEN SENT TO LAB.
[2018-08-13 12:08] LABS: APPEARANCE BODY FLUID CLEAR (CLEAR); BODY FLUID RBC 674 /cu. mm.; BODY FLUID WBC 144 /cu. mm.; COLOR,BODY FLUID YELLOW (LT YELLOW); SPECIMENTYPE,BODY FLUID ASCITES; TOTAL VOLUME,BODY FLUID 3800 mL
[2018-08-13 12:36] LABS: BF LYMPHOCYTE 18 %; BF MESOTHELIAL 24 %; BF MONOCYTE 17 %
== END | disposition home or self-care (01) ==
LOC: RAH 09:12
PROVIDERS: ATTEND Internal Medicine Gastroenterology
DX: R18.8 Other ascites (principal); Z79.01 Long term (current) use of anticoagulants
CPT/HCPCS: 36415; 49083; 80053; 85025; 85610; 87071; 87205; 88108; 88305; 89051; A4215

== ENCOUNTER → 2018-08-20 | Outpatient (CLI) | payer MEDICARE ==
[~2018-08-20] MED LIST changes: +ALBUMIN (HUMAN) 25% 150 ML IV ONE
[2018-08-20 09:51] LABS: BASOPHILS % (AUTO) 0.6 % (0.0-5.0); EOSINOPHILS % (AUTO) 4.6 % (0.0-8.0); HEMATOCRIT 28.9 % (42-54); LYMPHOCYTES % (AUTO) 13.2 % (21.0-51.0); MEAN CORPUSCULAR HEMOGLOBIN 33.3 pg (27.0-33.0); MEAN CORPUSCULAR HGB CONC 33.8 g/dL (32.0-36.0); MEAN CORPUSCULAR VOLUME 98.5 fL (79-99); NEUTROPHILS % (AUTO) 69.6 % (40.0-77.0); PLATELET COUNT (AUTO) 64 K/uL (130-400); RED BLOOD CELL COUNT(AUTO) 2.93 MIL/uL (4.50-6.20); RED CELL DISTRIBUTION WIDTH 15.6 % (11.0-15.5); WHITE BLOOD COUNT (AUTO) 4.7 K/uL (4.8-10.8)
[2018-08-20 09:56] LABS: CREATININE 1.4 mg/dL (0.5-1.5); INR 1.23 (0.85-1.15); POTASSIUM 4.8 mmol/L (3.5-5.1); PROTHROMBIN TIME 12.9 SEC (9.6-11.6)
[2018-08-20 10:03] LABS: ALBUMIN 2.4 g/dL (3.5-5.0); BILIRUBIN,TOTAL 0.9 mg/dL (0.2-1.0); TOTAL PROTEIN, SERUM 6.7 g/dL (6.0-8.3)
[2018-08-20 10:23] LABS: PLATELET MORPHOLOGY COMMENT DECREASED
--- NOTE | 2018-08-20 12:00 | NUR ---
U/S GD PARACENTESIS PROCEDURE PERFORMED BY DR Mimi MCCONNELL. PUNCTURE SITE LLQ AND PATIENT TOLERATED PROCEDURE WELL. TOTAL REMOVED 6 LITERS OF CLOUDY YELLOW FLUID. ALBUMIN 25% 37.5 GRAMS IV GIVEN POST PROCEDURE. SPECIMEN SENT TO LAB. END OF PROCEDURE AT 1110. CATHETER REMOVED AND DRESSING APPLIED. NO BLEEDING NOTED. DISCHARGE INSTRUCTIONS GIVEN TO PATIENT AND VERBALIZED UNDERSTANDING. DISCHARGED VIA AMBULATION AT 1200. AAO X3 WITH NO C/O PAIN.
[2018-08-20 14:20] LABS: APPEARANCE BODY FLUID SLIGHTLY CLOUDY (CLEAR); COLOR,BODY FLUID YELLOW (LT YELLOW); SPECIMENTYPE,BODY FLUID ASCITES; TOTAL VOLUME,BODY FLUID 6000 mL
[2018-08-20 14:21] LABS: BODY FLUID RBC 100 /cu. mm.; BODY FLUID WBC 63 /cu. mm.
[2018-08-20 14:33] LABS: BF LYMPHOCYTE 21 %; BF MONOCYTE 57 %
== END | disposition home or self-care (01) ==
LOC: RAH 09:20
PROVIDERS: ATTEND Internal Medicine Gastroenterology
DX: R18.8 Other ascites (principal); Z79.01 Long term (current) use of anticoagulants
CPT/HCPCS: 36415; 49083; 80053; 85025; 85610; 87071; 87205; 89051; 96365; A4215; P9046

== ENCOUNTER → 2018-08-27 | Outpatient (CLI) | payer MEDICARE ==
[~2018-08-27] MED LIST changes: +ALBUMIN (HUMAN) 25% 100 ML IV ONE; -ALBUMIN (HUMAN) 25% 150 ML IV ONE
[2018-08-27 09:00] LABS: BASOPHILS % (AUTO) 0.9 % (0.0-5.0); EOSINOPHILS % (AUTO) 2.9 % (0.0-8.0); HEMATOCRIT 29.3 % (42-54); LYMPHOCYTES % (AUTO) 12.2 % (21.0-51.0); MEAN CORPUSCULAR HEMOGLOBIN 34.4 pg (27.0-33.0); MEAN CORPUSCULAR HGB CONC 35.3 g/dL (32.0-36.0); MEAN CORPUSCULAR VOLUME 97.3 fL (79-99); MONOCYTES % (AUTO) 11.3 % (3.0-13.0); NEUTROPHILS % (AUTO) 72.7 % (40.0-77.0); PLATELET COUNT (AUTO) 70 K/uL (130-400); RED BLOOD CELL COUNT(AUTO) 3.01 MIL/uL (4.50-6.20); RED CELL DISTRIBUTION WIDTH 14.6 % (11.0-15.5); WHITE BLOOD COUNT (AUTO) 5.5 K/uL (4.8-10.8)
[2018-08-27 09:13] LABS: CREATININE 1.6 mg/dL (0.5-1.5); INR 1.18 (0.85-1.15); POTASSIUM 4.5 mmol/L (3.5-5.1); PROTHROMBIN TIME 12.4 SEC (9.6-11.6)
[2018-08-27 09:17] LABS: ALBUMIN 2.7 g/dL (3.5-5.0); BILIRUBIN,TOTAL 0.7 mg/dL (0.2-1.0); TOTAL PROTEIN, SERUM 7.1 g/dL (6.0-8.3)
--- NOTE | 2018-08-27 10:55 | NUR ---
U/S GD PARACENTESIS PROCEDURE PERFORMED BY DR MCCONNELL. PUNCTURE SITE RIGHT UPPER QUADRANT AND PATIENT TOLERATED PROCEDURE WELL. TOTAL REMOVED 4.5 LITERS OF CLOUDY YELLOW FLUID. END OF PROCEDURE AT 1135. CATHETER REMOVED AND DRESSING APPLIED. NO BLEEDING NOTED. SPECIMEN SENT TO LAB. ALBUMIN 25 % 50 GRAMS GIVEN IV PER MD ORDERS. DISCHARGE INSTRUCTIONS GIVEN TO PATIENT AND VERBALIZED UNDERSTANDING. DISCHARGED AMBULATORY, STABLE, AAO X3 WITH NO C/O PAIN.
[2018-08-27 13:33] LABS: APPEARANCE BODY FLUID SLIGHTLY CLOUDY (CLEAR); BODY FLUID RBC 1112 /cu. mm.; BODY FLUID WBC 74 /cu. mm.; COLOR,BODY FLUID YELLOW (LT YELLOW); SPECIMENTYPE,BODY FLUID ASCITES; TOTAL VOLUME,BODY FLUID 4500 mL
[2018-08-27 13:35] LABS: BF LYMPHOCYTE 15 %; BF MESOTHELIAL 35 %; BF MONOCYTE 17 %
== END | disposition home or self-care (01) ==
LOC: RAH 08:27
PROVIDERS: ATTEND Internal Medicine Gastroenterology
DX: R18.8 Other ascites (principal); Z79.01 Long term (current) use of anticoagulants; I26.99 Other pulmonary embolism without acute cor pulmonale; I82.90 Acute embolism and thrombosis of unspecified vein
CPT/HCPCS: 36415; 49083; 80053; 85025; 85610; 87071; 87205; 88108; 88305; 89051; 96365; A4215; P9046

== ENCOUNTER → 2018-09-03 | Outpatient (CLI) | payer MEDICARE ==
[~2018-09-03] MED LIST changes: -ALBUMIN (HUMAN) 25% 100 ML IV ONE; +ALBUMIN (HUMAN) 25% 200 ML IV SCH; -LIDOCAINE HCL 1% 20 ML VIAL ONE
[2018-09-03 10:12] LABS: BASOPHILS % (AUTO) 0.9 % (0.0-5.0); EOSINOPHILS % (AUTO) 1.6 % (0.0-8.0); HEMATOCRIT 29.3 % (42-54); LYMPHOCYTES % (AUTO) 11.1 % (21.0-51.0); MEAN CORPUSCULAR HEMOGLOBIN 33.8 pg (27.0-33.0); MEAN CORPUSCULAR HGB CONC 34.3 g/dL (32.0-36.0); MEAN CORPUSCULAR VOLUME 98.6 fL (79-99); MONOCYTES % (AUTO) 12.4 % (3.0-13.0); PLATELET COUNT (AUTO) 64 K/uL (130-400); RED BLOOD CELL COUNT(AUTO) 2.98 MIL/uL (4.50-6.20); RED CELL DISTRIBUTION WIDTH 14.7 % (11.0-15.5); WHITE BLOOD COUNT (AUTO) 4.4 K/uL (4.8-10.8)
[2018-09-03 10:28] LABS: CREATININE 1.3 mg/dL (0.5-1.5); POTASSIUM 4.8 mmol/L (3.5-5.1)
[2018-09-03 10:32] LABS: INR 1.19 (0.85-1.15); PROTHROMBIN TIME 12.5 SEC (9.6-11.6)
--- NOTE | 2018-09-03 11:20 | NUR ---
U/S GD PARACENTESIS PROCEDURE PERFORMED BY DR. REED. PUNCTURE SITE RIGHT SIDE ABDOMEN AND PATIENT TOLERATED PROCEDURE WELL. TOTAL REMOVED 5.2 LITERS OF CLOUDY YELLOW FLUID. END OF PROCEDURE AT 1200. CATHETER REMOVED AND DRESSING APPLIED. NO BLEEDING NOTED. SPECIMEN SENT TO LAB. ALBUMIN 25 % 50 GRAMS GIVEN IV PER MD ORDERS. DISCHARGE INSTRUCTIONS GIVEN TO PATIENT AND VERBALIZED UNDERSTANDING. DISCHARGED AMBULATORY. AAO X3 WITH NO C/O PAIN.
[2018-09-03 11:40] LABS: PLATELET MORPHOLOGY COMMENT DECREASED
[2018-09-03 13:40] LABS: APPEARANCE BODY FLUID CLOUDY (CLEAR); COLOR,BODY FLUID YELLOW (LT YELLOW); SPECIMENTYPE,BODY FLUID ASCITES
[2018-09-03 13:41] LABS: BODY FLUID RBC 525 /cu. mm.; BODY FLUID WBC 104 /cu. mm.; TOTAL VOLUME,BODY FLUID 5200 mL
[2018-09-03 13:59] LABS: BF LYMPHOCYTE 11 %; BF MONOCYTE 36 %
== END | disposition home or self-care (01) ==
LOC: RAH 08:42
PROVIDERS: ATTEND Internal Medicine Gastroenterology
DX: R18.8 Other ascites (principal); Z79.01 Long term (current) use of anticoagulants
CPT/HCPCS: 36415; 49083; 80048; 85025; 85610; 85730; 87071; 87205; 89051; A4215; P9046

== ENCOUNTER → 2018-09-10 | Outpatient (CLI) | payer MEDICARE ==
[~2018-09-10] MED LIST changes: +ALBUMIN (HUMAN) 25% 100 ML IV ONE; -ALBUMIN (HUMAN) 25% 200 ML IV SCH; +LIDOCAINE HCL 1% 20 ML VIAL ONE
[2018-09-10 09:59] LABS: BASOPHILS % (AUTO) 0.6 % (0.0-5.0); EOSINOPHILS % (AUTO) 2.8 % (0.0-8.0); HEMATOCRIT 27.6 % (42-54); LYMPHOCYTES % (AUTO) 12.2 % (21.0-51.0); MEAN CORPUSCULAR HEMOGLOBIN 34.3 pg (27.0-33.0); MEAN CORPUSCULAR HGB CONC 34.8 g/dL (32.0-36.0); MEAN CORPUSCULAR VOLUME 98.5 fL (79-99); MONOCYTES % (AUTO) 10.4 % (3.0-13.0); RED CELL DISTRIBUTION WIDTH 14.7 % (11.0-15.5)
[2018-09-10 10:04] LABS: PLATELET COUNT (AUTO) 47 K/uL (130-400)
[2018-09-10 10:09] LABS: CREATININE 1.5 mg/dL (0.5-1.5); POTASSIUM 5.1 mmol/L (3.5-5.1)
[2018-09-10 10:11] LABS: INR 1.16 (0.85-1.15); PROTHROMBIN TIME 12.1 SEC (9.6-11.6)
[2018-09-10 10:15] LABS: ALBUMIN 2.7 g/dL (3.5-5.0); BILIRUBIN,TOTAL 0.7 mg/dL (0.2-1.0); TOTAL PROTEIN, SERUM 6.8 g/dL (6.0-8.3)
--- NOTE | 2018-09-10 11:20 | NUR ---
U/S GD PARACENTESIS PROCEDURE PERFORMED BY DR. REED. PUNCTURE SITE RIGHT SIDE ABDOMEN AND PATIENT TOLERATED PROCEDURE WELL. TOTAL REMOVED 4.6 LITERS OF CLOUDY YELLOW FLUID. END OF PROCEDURE AT 1150. CATHETER REMOVED AND DRESSING APPLIED. ALBUMIN 25 % 50 GRAMS GIVEN IV PER MD ORDERS. NO BLEEDING NOTED. SPECIMEN SENT TO LAB. DISCHARGE INSTRUCTIONS GIVEN TO PATIENT AND VERBALIZED UNDERSTANDING. DISCHARGED AMBULATORY,STABLE AAO X3 WITH NO C/O PAIN @ 1215.
[2018-09-10 12:54] LABS: APPEARANCE BODY FLUID CLEAR (CLEAR); COLOR,BODY FLUID YELLOW (LT YELLOW); SPECIMENTYPE,BODY FLUID ASCITES; TOTAL VOLUME,BODY FLUID 4600 mL
[2018-09-10 12:55] LABS: BODY FLUID RBC 323 /cu. mm.; BODY FLUID WBC 132 /cu. mm.
[2018-09-10 13:27] LABS: BF LYMPHOCYTE 18 %; BF MESOTHELIAL 6 %; BF MONOCYTE 19 %
== END ==
LOC: RAH 09:30
PROVIDERS: ATTEND Internal Medicine Gastroenterology
DX: R18.8 Other ascites (principal); Z79.01 Long term (current) use of anticoagulants
CPT/HCPCS: 36415; 49083; 80053; 85025; 85610; 87071; 87205; 88108; 88305; 89051; 96365; A4215; P9046 ×2

== ENCOUNTER → 2018-09-17 | Outpatient (CLI) | payer MEDICARE ==
[~2018-09-17] MED LIST changes: -ALBUMIN (HUMAN) 25% 100 ML IV ONE; -LIDOCAINE HCL 1% 20 ML VIAL ONE
[2018-09-17 09:20] LABS: EOSINOPHILS % (AUTO) 3.1 % (0.0-8.0); HEMATOCRIT 29.5 % (42-54); LYMPHOCYTES % (AUTO) 11.5 % (21.0-51.0); MEAN CORPUSCULAR HGB CONC 34.5 g/dL (32.0-36.0); MEAN CORPUSCULAR VOLUME 98.5 fL (79-99); MONOCYTES % (AUTO) 12.5 % (3.0-13.0); NEUTROPHILS % (AUTO) 71.9 % (40.0-77.0); PLATELET COUNT (AUTO) 73 K/uL (130-400); RED BLOOD CELL COUNT(AUTO) 2.99 MIL/uL (4.50-6.20); RED CELL DISTRIBUTION WIDTH 14.7 % (11.0-15.5); WHITE BLOOD COUNT (AUTO) 4.9 K/uL (4.8-10.8)
[2018-09-17 09:29] LABS: CREATININE 1.5 mg/dL (0.5-1.5)
[2018-09-17 09:33] LABS: ALBUMIN 2.7 g/dL (3.5-5.0); BILIRUBIN,TOTAL 0.7 mg/dL (0.2-1.0); TOTAL PROTEIN, SERUM 6.8 g/dL (6.0-8.3)
[2018-09-17 09:41] LABS: INR 1.16 (0.85-1.15); PROTHROMBIN TIME 12.1 SEC (9.6-11.6)
--- NOTE | 2018-09-17 11:15 | NUR ---
U/S GD PARACENTESIS PROCEDURE PERFORMED BY DR Remi VALERA. PUNCTURE SITE RLQ AND PATIENT TOLERATED PROCEDURE WELL. TOTAL REMOVED 3.5 LITERS OF CLOUDY YELLOW FLUID. SPECIMEN SENT TO LAB. END OF PROCEDURE AT 1045. CATHETER REMOVED AND DRESSING APPLIED. NO BLEEDING NOTED. DISCHARGE INSTRUCTIONS GIVEN TO PATIENT AND VERBALIZED UNDERSTANDING. DISCHARGED VIA AMBULATION AT 1115. AAO X3 WITH NO C/O PAIN.
[2018-09-17 16:59] LABS: SPECIMENTYPE,BODY FLUID ASCITES
[2018-09-17 17:00] LABS: APPEARANCE BODY FLUID SLIGHTLY CLOUDY (CLEAR); BODY FLUID WBC 54 /cu. mm.; COLOR,BODY FLUID LT YELLOW (LT YELLOW); TOTAL VOLUME,BODY FLUID 3500 mL
[2018-09-17 17:01] LABS: BODY FLUID RBC 520 /cu. mm.
[2018-09-17 17:05] LABS: BF LYMPHOCYTE 22 %
== END | disposition home or self-care (01) ==
LOC: RAH 08:58
PROVIDERS: ATTEND Internal Medicine Gastroenterology
DX: R18.8 Other ascites (principal)
CPT/HCPCS: 36415; 49083; 80053; 85025; 85610; 87071; 87205; 88108; 88305; 89051; A4215

== ENCOUNTER → 2018-09-23 | Outpatient (CLI) | payer MEDICARE ==
[~2018-09-23] MED LIST changes: +ALBUMIN (HUMAN) 25% 100 ML IV PRN; +LIDOCAINE HCL 1% 20 ML VIAL ONE
--- NOTE | 2018-09-23 09:45 | NUR ---
U/S GUIDED PARACENTESIS PROCEDURE PERFORMED BY DR. VALERA, PUNCTURE SITE RIGHT SIDE OF ABDOMEN AND PATIENT TOLERATED PROCEDURE WELL. TOTAL REMOVED 4.2 LITERS OF CLEAR ASCITES FLUID. END OF PROCEDURE AT 0909 CATHETER REMOVED AND DRESSING APPLIED. NO BLEEDING NOTED. DISCHARGE INSTRUCTIONS GIVEN TO PATIENT AND VERBALIZED UNDERSTANDING. DISCHARGED VIA AMBULATORY. [id number] WITH NO C/O PAIN.
[2018-09-23 11:04] LABS: APPEARANCE BODY FLUID CLEAR (CLEAR); BODY FLUID WBC 49 /cu. mm.; COLOR,BODY FLUID YELLOW (LT YELLOW); SPECIMENTYPE,BODY FLUID ASCITES; TOTAL VOLUME,BODY FLUID 4200 mL
[2018-09-23 11:05] LABS: BODY FLUID RBC 69 /cu. mm.
[2018-09-23 11:43] LABS: BF LYMPHOCYTE 15 %; BF MESOTHELIAL 69 %; BF MONOCYTE 13 %
== END | disposition home or self-care (01) ==
LOC: RAH 07:47
PROVIDERS: ATTEND Internal Medicine Gastroenterology
DX: K74.69 Other cirrhosis of liver (principal); R18.8 Other ascites; C22.9 Malignant neoplasm of liver, not specified as primary or secondary; K21.9 Gastro-esophageal reflux disease without esophagitis; E11.9 Type 2 diabetes mellitus without complications; I11.0 Hypertensive heart disease with heart failure; I50.9 Heart failure, unspecified; Z83.3 Family history of diabetes mellitus
CPT/HCPCS: 49083; 87071; 87205; 89051; 96365; A4215

== ENCOUNTER → 2018-10-07 | Outpatient (CLI) | payer MEDICARE ==
[~2018-10-07] MED LIST changes: +ALBUMIN (HUMAN) 25% 100 ML IV ONE; -ALBUMIN (HUMAN) 25% 100 ML IV PRN; +ALBUMIN (HUMAN) 25% 100 ML IV SCH
--- NOTE | 2018-10-07 08:35 | NUR ---
U/S GD PARACENTESIS PROCEDURE PERFORMED BY DR MCCONNELL. PUNCTURE SITE LEFT SIDE ABDOMEN AND PATIENT TOLERATED PROCEDURE WELL. TOTAL REMOVED 5.3 LITERS OF CLOUDY YELLOW FLUID. END OF PROCEDURE AT 0915. CATHETER REMOVED AND DRESSING APPLIED. NO BLEEDING NOTED. SPECIMEN SENT TO LAB. ALBUMIN 25 % 25 GRAMS GIVEN IV PER MD ORDERS. DISCHARGE INSTRUCTIONS GIVEN TO PATIENT AND VERBALIZED UNDERSTANDING. DISCHARGED AMBULATORY. STABLE, AAO X3 WITH NO C/O PAIN.
[2018-10-07 13:34] LABS: APPEARANCE BODY FLUID CLEAR (CLEAR); BODY FLUID WBC 102 /cu. mm.; COLOR,BODY FLUID YELLOW (LT YELLOW); SPECIMENTYPE,BODY FLUID ASCITES; TOTAL VOLUME,BODY FLUID 5300 mL
[2018-10-07 13:35] LABS: BODY FLUID RBC 176 /cu. mm.
[2018-10-07 13:45] LABS: BF LYMPHOCYTE 28 %; BF MESOTHELIAL 10 %; BF MONOCYTE 16 %
== END | disposition home or self-care (01) ==
LOC: RAH 10:00
PROVIDERS: ATTEND Internal Medicine Gastroenterology
DX: R18.8 Other ascites (principal); K74.60 Unspecified cirrhosis of liver
CPT/HCPCS: 49083; 87071; 87205; 89051; 96365; A4215; P9047; 88108; 88305; P9046

== ENCOUNTER → 2018-10-14 | Outpatient (CLI) | payer MEDICARE ==
--- NOTE | 2018-10-14 10:00 | NUR ---
U/S GD PARACENTESIS PROCEDURE PERFORMED BY DR Mimi MCCONNELL. PUNCTURE SITE RLQ AND PATIENT TOLERATED PROCEDURE WELL. TOTAL REMOVED 4.4 LITERS AND ALBUMIN 25% 25 GRAMS IV GIVEN PER PROTOCOL. SPECIMEN COLLECTED AND SENT TO LAB. END OF PROCEDURE AT 0930. DISCHARGED INSTRUCTIONS GIVEN AND VERBALIZED UNDERSTANDING. DISCHARGED VIA AMBULATION AT 1000 VIA AMBULATION.
[2018-10-14 13:56] LABS: APPEARANCE BODY FLUID SLIGHTLY CLOUDY (CLEAR); COLOR,BODY FLUID LT YELLOW (LT YELLOW); SPECIMENTYPE,BODY FLUID ASCITES; TOTAL VOLUME,BODY FLUID 4000 mL
[2018-10-14 14:39] LABS: BF LYMPHOCYTE 24 %; BF MONOCYTE 38 %; BF OTHER CELLS 3
[2018-10-14 14:59] LABS: BODY FLUID RBC 275 /cu. mm.; BODY FLUID WBC 85 /cu. mm.
== END ==
LOC: RAH 07:27
PROVIDERS: ATTEND Internal Medicine Gastroenterology
DX: R18.8 Other ascites (principal); K74.69 Other cirrhosis of liver
CPT/HCPCS: 49083; 87071; 87205; 88108; 88305; 89051; 96365; A4215; P9046

== ENCOUNTER → 2018-10-22 | Outpatient (CLI) | payer MEDICARE ==
[~2018-10-22] MED LIST changes: -LIDOCAINE HCL 1% 20 ML VIAL ONE
[2018-10-22 08:25] LABS: BASOPHILS % (AUTO) 1.2 % (0.0-5.0); EOSINOPHILS % (AUTO) 5.1 % (0.0-8.0); HEMATOCRIT 27.2 % (42-54); MEAN CORPUSCULAR HEMOGLOBIN 34.4 pg (27.0-33.0); MEAN CORPUSCULAR HGB CONC 35.4 g/dL (32.0-36.0); MEAN CORPUSCULAR VOLUME 97.3 fL (79-99); MONOCYTES % (AUTO) 14.5 % (3.0-13.0); NEUTROPHILS % (AUTO) 63.2 % (40.0-77.0); NUCLEATED RED BLOOD CELLS 0.1 % (0.0-0.19); PLATELET COUNT (AUTO) 65 K/uL (130-400); RED CELL DISTRIBUTION WIDTH 14.9 % (11.0-15.5); WHITE BLOOD COUNT (AUTO) 4.1 K/uL (4.8-10.8)
[2018-10-22 08:34] LABS: CREATININE 1.4 mg/dL (0.5-1.5); POTASSIUM 4.2 mmol/L (3.5-5.1)
[2018-10-22 08:36] LABS: INR 1.23 (0.85-1.15); PROTHROMBIN TIME 12.9 SEC (9.6-11.6)
[2018-10-22 08:39] LABS: ALBUMIN 2.5 g/dL (3.5-5.0); BILIRUBIN,TOTAL 0.9 mg/dL (0.2-1.0); TOTAL PROTEIN, SERUM 6.3 g/dL (6.0-8.3)
--- NOTE | 2018-10-22 10:02 | NUR ---
U/S GD PARACENTESIS PROCEDURE PERFORMED BY DR Remi VALERA. PUNCTURE SITE RLQ AND PATIENT TOLERATED PROCEDURE WELL. TOTAL REMOVED 4.5 LITERS OF CLOUDY YELLOW FLUID. ALBUMIN 25% 25 GRAMS IV GIVEN DURING PROCEDURE. SPECIMEN SENT TO LAB. END OF PROCEDURE AT 0915. CATHETER REMOVED AND DRESSING APPLIED. NO BLEEDING NOTED. DISCHARGE INSTRUCTIONS GIVEN TO PATIENT AND VERBALIZED UNDERSTANDING. DISCHARGED VIA AMBULATION AT 0945. AAO X3 WITH NO C/O PAIN.
[2018-10-22 12:15] LABS: APPEARANCE BODY FLUID CLEAR (CLEAR); COLOR,BODY FLUID YELLOW (LT YELLOW); SPECIMENTYPE,BODY FLUID ASCITES; TOTAL VOLUME,BODY FLUID 4500 mL
[2018-10-22 12:16] LABS: BODY FLUID RBC 498 /cu. mm.; BODY FLUID WBC 114 /cu. mm.
[2018-10-22 12:50] LABS: BF LYMPHOCYTE 19 %; BF MESOTHELIAL 25 %; BF MONOCYTE 22 %
== END | disposition home or self-care (01) ==
LOC: RAH 07:54
PROVIDERS: ATTEND Internal Medicine Gastroenterology
DX: K74.69 Other cirrhosis of liver (principal)
CPT/HCPCS: 36415; 49083; 80053; 85025; 85610; 87071; 87205; 88108; 88305; 89051; A4215; P9046

== ENCOUNTER → 2018-10-29 | Outpatient (CLI) | payer MEDICARE ==
[~2018-10-29] MED LIST changes: -ALBUMIN (HUMAN) 25% 100 ML IV SCH; +PHARMACY COMMUNICATION MISC SCH
--- NOTE | 2018-10-29 08:55 | NUR ---
U/S GD PARACENTESIS PROCEDURE PERFORMED BY DR FLEMING. PUNCTURE SITE RLQ AND PATIENT TOLERATED PROCEDURE WELL. TOTAL REMOVED 4.8 LITERS OF CLOUDY YELLOW FLUID. ALBUMIN 25% 25 GRAMS IV GIVEN DURING PROCEDURE. SPECIMEN SENT TO LAB. END OF PROCEDURE AT 0940. CATHETER REMOVED AND DRESSING APPLIED. NO BLEEDING NOTED. DISCHARGE INSTRUCTIONS GIVEN TO PATIENT AND VERBALIZED UNDERSTANDING. DISCHARGED VIA AMBULATION AT 1010. AAO X3 WITH NO C/O PAIN.
[2018-10-29 14:05] LABS: APPEARANCE BODY FLUID SLIGHTLY CLOUDY (CLEAR); COLOR,BODY FLUID YELLOW (LT YELLOW); SPECIMENTYPE,BODY FLUID ASCITES; TOTAL VOLUME,BODY FLUID 4800 mL
[2018-10-29 14:09] LABS: BODY FLUID RBC 112 /cu. mm.; BODY FLUID WBC 294 /cu. mm.
[2018-10-29 14:32] LABS: BF LYMPHOCYTE 28 %; BF MONOCYTE 30 %
== END | disposition home or self-care (01) ==
LOC: RAH 08:04
PROVIDERS: ATTEND Internal Medicine Gastroenterology
DX: R18.8 Other ascites (principal); K74.69 Other cirrhosis of liver
CPT/HCPCS: 49083; 87071; 87205; 89051; 96365; A4215; P9046

== ENCOUNTER → 2018-11-05 | Outpatient (CLI) | payer MEDICARE ==
[~2018-11-05] MED LIST changes: -ALBUMIN (HUMAN) 25% 100 ML IV ONE; +ALBUMIN (HUMAN) 25% 100 ML IV SCH; -PHARMACY COMMUNICATION MISC SCH
--- NOTE | 2018-11-05 11:20 | NUR ---
U/S GD PARACENTESIS PROCEDURE PERFORMED BY DR FLEMING. PUNCTURE SITE LLQ AND PATIENT TOLERATED PROCEDURE WELL. TOTAL REMOVED 4.1 LITERS OF CLOUDY STRAW COLORED FLUID. END OF PROCEDURE AT 1130. CATHETER REMOVED AND DRESSING APPLIED. NO BLEEDING NOTED. SPECIMEN SENT TO LAB. ALBUMIN 25 % 25 GRAMS GIVEN IV PER MD ORDERS. DISCHARGE INSTRUCTIONS GIVEN TO PATIENT AND VERBALIZED UNDERSTANDING. DISCHARGED AMBULATORY. AAO X3 WITH NO C/O PAIN.
[2018-11-05 13:00] LABS: APPEARANCE BODY FLUID CLEAR (CLEAR); COLOR,BODY FLUID YELLOW (LT YELLOW); SPECIMENTYPE,BODY FLUID ASCITES; TOTAL VOLUME,BODY FLUID 4000 mL
[2018-11-05 13:06] LABS: BODY FLUID WBC 148 /cu. mm.
[2018-11-05 13:07] LABS: BODY FLUID RBC 339 /cu. mm.
[2018-11-05 13:17] LABS: BF LYMPHOCYTE 23 %; BF MESOTHELIAL 53 %; BF MONOCYTE 15 %
== END | disposition home or self-care (01) ==
LOC: RAH 07:31
PROVIDERS: ATTEND Internal Medicine Gastroenterology
DX: R18.8 Other ascites (principal); K74.69 Other cirrhosis of liver
CPT/HCPCS: 49083; 87071; 87205; 89051; 96365; A4215; P9046

== ENCOUNTER → 2018-11-12 | Outpatient (CLI) | payer MEDICARE ==
--- NOTE | 2018-11-12 11:15 | NUR ---
US GUIDED PARACENTESIS PROCEDURE PERFORMED BY DR. REED. PUNCTURE SITE TO THE RIGHT LOWER QUADRANT. PATIENT TOLERATED. WELL. TOTAL 5.3 LITERS REMOVED. END OF PROCEDURE AT 1135. CATHETER REMOVED AND DRESSING APPLIED. NO BLEEDING NOTED. ALBUMIN 25% 25 GRAMS GIVEN IV. DISCHARGE INSTRUCTIONS GIVEN TO PATIENT AND VERBALIZED UNDERSTANDING. DISCHARGED AMBULATORY, STABLE, AAO X 3 WITH NO C/O PAIN.
[2018-11-12 14:22] LABS: APPEARANCE BODY FLUID CLOUDY (CLEAR); BODY FLUID RBC 100 /cu. mm.; BODY FLUID WBC 101 /cu. mm.; COLOR,BODY FLUID YELLOW (LT YELLOW); SPECIMENTYPE,BODY FLUID ASCITES; TOTAL VOLUME,BODY FLUID 5300 mL
[2018-11-12 14:34] LABS: BF LYMPHOCYTE 25 %; BF MONOCYTE 42 %
== END | disposition home or self-care (01) ==
LOC: RAH 10:37
PROVIDERS: ATTEND Internal Medicine Gastroenterology
DX: R18.8 Other ascites (principal); K74.69 Other cirrhosis of liver
CPT/HCPCS: 49083; 87071; 87205; 88108; 88305; 89051; 96365; A4215; P9046

== ENCOUNTER → 2018-11-22 | Outpatient (CLI) | payer MEDICARE ==
[~2018-11-22] VITALS: Ht 152.4 cm; Wt 55.3 kg
[~2018-11-22] MED LIST changes: +ALBUMIN (HUMAN) 25% 100 ML IV ONE
[2018-11-22 10:40] LABS: BASOPHILS % (AUTO) 0.8 % (0.0-5.0); EOSINOPHILS % (AUTO) 3.3 % (0.0-8.0); HEMATOCRIT 28.1 % (42-54); LYMPHOCYTES % (AUTO) 11.3 % (21.0-51.0); MEAN CORPUSCULAR HEMOGLOBIN 34.2 pg (27.0-33.0); MEAN CORPUSCULAR HGB CONC 35.1 g/dL (32.0-36.0); MEAN CORPUSCULAR VOLUME 97.5 fL (79-99); MONOCYTES % (AUTO) 13.5 % (3.0-13.0); NEUTROPHILS % (AUTO) 71.1 % (40.0-77.0); PLATELET COUNT (AUTO) 65 K/uL (130-400); RED BLOOD CELL COUNT(AUTO) 2.88 MIL/uL (4.50-6.20); RED CELL DISTRIBUTION WIDTH 14.8 % (11.0-15.5); WHITE BLOOD COUNT (AUTO) 5.4 K/uL (4.8-10.8)
[2018-11-22 10:54] LABS: INR 1.15 (0.85-1.15)
[2018-11-22 10:56] LABS: ALBUMIN 2.4 g/dL (3.5-5.0); BILIRUBIN,TOTAL 0.5 mg/dL (0.2-1.0); CREATININE 1.5 mg/dL (0.5-1.5); POTASSIUM 4.1 mmol/L (3.5-5.1); TOTAL PROTEIN, SERUM 6.6 g/dL (6.0-8.3)
--- NOTE | 2018-11-22 14:05 | NUR ---
US GUIDED PARACENTESIS PROCEDURE PERFORMED BY DR. MCCONNELL. PUNCTURE SITE TO THE LEFT LOWER QUADRANT. PATIENT TOLERATED. WELL. TOTAL 5.0 LITERS REMOVED. END OF PROCEDURE AT 1440. CATHETER REMOVED AND DRESSING APPLIED. NO BLEEDING NOTED. ALBUMIN 25% 25 GRAMS GIVEN IV. DISCHARGE INSTRUCTIONS GIVEN TO PATIENT AND VERBALIZED UNDERSTANDING. DISCHARGED AMBULATORY, STABLE, AAO X 3 WITH NO C/O PAIN.
[2018-11-22 16:19] LABS: SPECIMENTYPE,BODY FLUID ASCITES
[2018-11-22 16:20] LABS: APPEARANCE BODY FLUID SLIGHTLY CLOUDY (CLEAR); BODY FLUID WBC 190 /cu. mm.; COLOR,BODY FLUID YELLOW (LT YELLOW); TOTAL VOLUME,BODY FLUID 5000 mL
[2018-11-22 16:21] LABS: BODY FLUID RBC 704 /cu. mm.
[2018-11-22 16:59] LABS: BF LYMPHOCYTE 23 %; BF MONOCYTE 13 %; BF OTHER CELLS 3
== END | disposition home or self-care (01) ==
LOC: RAH 10:33
PROVIDERS: ATTEND Internal Medicine Gastroenterology
DX: R18.8 Other ascites (principal)
CPT/HCPCS: 36415; 49083; 80053; 85025; 85610; 87071; 87205; 88108; 88305; 89051; 96365; A4215; P9046

== ENCOUNTER → 2018-11-29 | Outpatient (CLI) | payer MEDICARE ==
[~2018-11-29] MED LIST changes: -ALBUMIN (HUMAN) 25% 100 ML IV ONE; -ALBUMIN (HUMAN) 25% 100 ML IV SCH; +ALBUMIN (HUMAN) 25% 200 ML IV SCH
--- NOTE | 2018-11-29 10:00 | NUR ---
U/S GD PARACENTESIS PROCEDURE PERFORMED BY DR Antonella FLEMING. PUNCTURE SITE LLQ AND PATIENT TOLERATED PROCEDURE WELL. TOTAL REMOVED 4.5 LITERS OF CLOUDY YELLOW FLUID. ALBUMIN 25% 25 GRAMS IV GIVEN POST PROCEDURE. SPECIMEN SENT TO LAB. END OF PROCEDURE AT 0930. CATHETER REMOVED AND DRESSING APPLIED. NO BLEEDING NOTED. DISCHARGE INSTRUCTIONS GIVEN TO PATIENT AND VERBALIZED UNDERSTANDING. DISCHARGED VIA AMBULATION AT 1000. AAO X3 WITH NO C/O PAIN.
[2018-11-29 13:56] LABS: APPEARANCE BODY FLUID CLEAR (CLEAR); BODY FLUID RBC 1047 /cu. mm.; BODY FLUID WBC 132 /cu. mm.; COLOR,BODY FLUID YELLOW (LT YELLOW); SPECIMENTYPE,BODY FLUID ASCITES; TOTAL VOLUME,BODY FLUID 4500 mL
[2018-11-29 14:19] LABS: BF LYMPHOCYTE 34 %; BF MESOTHELIAL 23 %; BF MONOCYTE 21 %
== END | disposition home or self-care (01) ==
LOC: RAH 08:06
PROVIDERS: ATTEND Internal Medicine Gastroenterology
DX: R18.8 Other ascites (principal)
CPT/HCPCS: 49083; 87071; 87205; 88108; 88305; 89051; A4215; P9046

== ENCOUNTER → 2018-12-06 | Outpatient (CLI) | payer MEDICARE ==
[~2018-12-06] MED LIST changes: -ALBUMIN (HUMAN) 25% 200 ML IV SCH
--- NOTE | 2018-12-06 09:00 | NUR ---
U/S GD PARACENTESIS PROCEDURE PERFORMED BY DR VALERA. PUNCTURE SITE LLQ AND PATIENT TOLERATED PROCEDURE WELL. TOTAL REMOVED 4.0 LITERS OF CLOUDY YELLOW FLUID. SPECIMEN SENT TO LAB. END OF PROCEDURE AT 0920. CATHETER REMOVED AND DRESSING APPLIED. NO BLEEDING NOTED. DISCHARGE INSTRUCTIONS GIVEN TO PATIENT AND VERBALIZED UNDERSTANDING. DISCHARGED VIA AMBULATION AT 0940. AAO X3 WITH NO C/O PAIN.
[2018-12-06 11:59] LABS: SPECIMENTYPE,BODY FLUID ASCITES
[2018-12-06 12:00] LABS: APPEARANCE BODY FLUID CLEAR (CLEAR); BODY FLUID RBC 2005 /cu. mm.; BODY FLUID WBC 167 /cu. mm.; COLOR,BODY FLUID YELLOW (LT YELLOW); TOTAL VOLUME,BODY FLUID 3900 mL
[2018-12-06 12:25] LABS: BF LYMPHOCYTE 39 %; BF MESOTHELIAL 42 %; BF MONOCYTE 12 %
== END ==
LOC: RAH 07:56
PROVIDERS: ATTEND Internal Medicine Gastroenterology
DX: R18.8 Other ascites (principal)
CPT/HCPCS: 49083; 87071; 87205; 88108; 88305; 89051; A4215

== ENCOUNTER → 2018-12-20 | Outpatient (CLI) | payer MEDICARE ==
[~2018-12-20] VITALS: Ht 152.4 cm; Wt 55.3 kg
[~2018-12-20] MED LIST changes: +OMEP-50 PO; -OMEP20CA10 PO
[2018-12-20 08:40] LABS: BASOPHILS % (AUTO) 1.3 % (0.0-5.0); EOSINOPHILS % (AUTO) 2.8 % (0.0-8.0); HEMATOCRIT 28.6 % (42-54); LYMPHOCYTES % (AUTO) 10.3 % (21.0-51.0); MEAN CORPUSCULAR HEMOGLOBIN 33.6 pg (27.0-33.0); MEAN CORPUSCULAR HGB CONC 35.7 g/dL (32.0-36.0); MEAN CORPUSCULAR VOLUME 94.1 fL (79-99); MONOCYTES % (AUTO) 11.1 % (3.0-13.0); NEUTROPHILS % (AUTO) 74.5 % (40.0-77.0); NUCLEATED RED BLOOD CELLS 0.1 % (0.0-0.19); PLATELET COUNT (AUTO) 74 K/uL (130-400); RED BLOOD CELL COUNT(AUTO) 3.04 MIL/uL (4.50-6.20); RED CELL DISTRIBUTION WIDTH 15.1 % (11.0-15.5); WHITE BLOOD COUNT (AUTO) 6.4 K/uL (4.8-10.8)
[2018-12-20 08:51] LABS: CREATININE 1.4 mg/dL (0.5-1.5); POTASSIUM 4.6 mmol/L (3.5-5.1)
[2018-12-20 08:52] LABS: INR 1.18 (0.85-1.15); PROTHROMBIN TIME 12.3 SEC (9.6-11.6)
[2018-12-20 08:56] LABS: ALBUMIN 2.2 g/dL (3.5-5.0); BILIRUBIN,TOTAL 0.9 mg/dL (0.2-1.0); TOTAL PROTEIN, SERUM 6.6 g/dL (6.0-8.3)
--- NOTE | 2018-12-20 10:10 | NUR ---
U/S GD PARACENTESIS PROCEDURE PERFORMED BY DR FLEMING. PUNCTURE SITE RIGHT LOWER QUADRANT AND PATIENT TOLERATED PROCEDURE WELL. TOTAL REMOVED 2.8 LITERS OF CLOUDY YELLOW. SPECIMEN SENT TO LAB. END OF PROCEDURE AT 1020. CATHETER REMOVED AND DRESSING APPLIED. NO BLEEDING NOTED. DISCHARGE INSTRUCTIONS GIVEN TO PATIENT AND VERBALIZED UNDERSTANDING. DISCHARGED VIA AMBULATION AT 1055. AAO X3 WITH NO C/O PAIN.
[2018-12-20 13:35] LABS: APPEARANCE BODY FLUID CLOUDY (CLEAR); BODY FLUID WBC 250 /cu. mm.; COLOR,BODY FLUID YELLOW (LT YELLOW); SPECIMENTYPE,BODY FLUID ASCITES; TOTAL VOLUME,BODY FLUID 2800 mL
[2018-12-20 13:36] LABS: BODY FLUID RBC 2473 /cu. mm.
[2018-12-20 13:41] LABS: BF LYMPHOCYTE 28 %; BF MESOTHELIAL 27 %; BF MONOCYTE 38 %
== END ==
LOC: RAH 07:53
PROVIDERS: ATTEND Internal Medicine Gastroenterology
DX: R18.8 Other ascites (principal); F15.90 Other stimulant use, unspecified, uncomplicated; Z79.899 Other long term (current) drug therapy; Z83.3 Family history of diabetes mellitus
CPT/HCPCS: 36415; 49083; 80053; 85025; 85610; 87071; 87205; 88108; 88305; 89051; A4215

== ENCOUNTER → 2018-12-27 | Outpatient (CLI) | payer MEDICARE ==
--- NOTE | 2018-12-27 12:00 | NUR ---
U/S GD PARACENTESIS PROCEDURE PERFORMED BY DR BELTRAN. PUNCTURE SITE RIGHT LOWER QUADRANT AND PATIENT TOLERATED PROCEDURE WELL. TOTAL REMOVED 3.4 LITERS OF CLOUDY YELLOW. SPECIMEN SENT TO LAB. END OF PROCEDURE AT 1235. CATHETER REMOVED AND DRESSING APPLIED. NO BLEEDING NOTED. DISCHARGE INSTRUCTIONS GIVEN TO PATIENT AND VERBALIZED UNDERSTANDING. DISCHARGED VIA AMBULATORY AT 1255. STABLE, AAO X3 WITH NO C/O PAIN.
[2018-12-27 14:09] LABS: SPECIMENTYPE,BODY FLUID ASCITES
[2018-12-27 14:10] LABS: APPEARANCE BODY FLUID SLIGHTLY CLOUDY (CLEAR); BODY FLUID RBC 747 /cu. mm.; BODY FLUID WBC 94 /cu. mm.; COLOR,BODY FLUID YELLOW (LT YELLOW); TOTAL VOLUME,BODY FLUID 3400 mL
[2018-12-27 14:13] LABS: BF LYMPHOCYTE 21 %; BF MESOTHELIAL 52 %; BF MONOCYTE 17 %
== END ==
LOC: RAH 09:33
PROVIDERS: ATTEND Internal Medicine Gastroenterology
DX: R18.8 Other ascites (principal)
CPT/HCPCS: 49083; 87071; 87205; 88108; 88305; 89051; A4215

== ENCOUNTER → 2019-01-03 | Outpatient (CLI) | payer MEDICARE ==
[~2019-01-03] MED LIST changes: +ALBUMIN (HUMAN) 25% 100 ML IV ONE
--- NOTE | 2019-01-03 09:40 | NUR ---
U/S GD PARACENTESIS PROCEDURE PERFORMED BY DR FLEMING. PUNCTURE SITE RIGHT SIDE OF THE ABDOMEN AND PATIENT TOLERATED PROCEDURE WELL. TOTAL REMOVED 4.2 LITERS OF CLOUDY YELLOW. SPECIMEN SENT TO LAB. END OF PROCEDURE AT 1000. CATHETER REMOVED AND DRESSING APPLIED. NO BLEEDING NOTED. ALBUMIN 25% 25 GRAMS/ 100ML GIVEN TO RIGHT ANTECUBITAL PIV. PT TOLERATED WELL. DISCHARGE INSTRUCTIONS GIVEN TO PATIENT AND VERBALIZED UNDERSTANDING. PIV DC'D BANDAID APPLIED. NO BLEEDING NOTED. DISCHARGED VIA AMBULATORY AT 1055. STABLE, AAO X3 WITH NO C/O PAIN.
[2019-01-03 11:03] LABS: APPEARANCE BODY FLUID CLEAR (CLEAR); BODY FLUID RBC 472 /cu. mm.; BODY FLUID WBC 111 /cu. mm.; COLOR,BODY FLUID YELLOW (LT YELLOW); SPECIMENTYPE,BODY FLUID ASCITES; TOTAL VOLUME,BODY FLUID 4200 mL
[2019-01-03 11:27] LABS: BF LYMPHOCYTE 29 %; BF MESOTHELIAL 42 %; BF MONOCYTE 15 %
== END ==
LOC: RAH 09:02
PROVIDERS: ATTEND Internal Medicine Gastroenterology
DX: R18.8 Other ascites (principal); F15.90 Other stimulant use, unspecified, uncomplicated; Z79.899 Other long term (current) drug therapy; Z83.3 Family history of diabetes mellitus
CPT/HCPCS: 49083; 87071; 87205; 88108; 88305; 89051; 96365; A4215; P9046

== ENCOUNTER → 2019-01-10 | Outpatient (CLI) | payer MEDICARE ==
[~2019-01-10] MED LIST changes: -ALBUMIN (HUMAN) 25% 100 ML IV ONE; +ALBUMIN (HUMAN) 25% 100 ML IV SCH
--- NOTE | 2019-01-10 10:30 | NUR ---
U/S GD PARACENTESIS PROCEDURE PERFORMED BY DR Maria Teresa MCGOVERN. PUNCTURE SITE LLQ AND PATIENT TOLERATED PROCEDURE WELL. TOTAL REMOVED 4.5 LITERS OF CLOUDY YELLOW FLUID. ALBUMIN 25% 25 GRAMS IV GIVEN DURING PROCEDURE. SPECIMEN SENT TO LAB. END OF PROCEDURE AT 1030. CATHETER REMOVED AND DRESSING APPLIED. NO BLEEDING NOTED. DISCHARGE INSTRUCTIONS GIVEN TO PATIENT AND VERBALIZED UNDERSTANDING. DISCHARGED VIA AMBULATION AT 1030. AAO X3 WITH NO C/O PAIN.
[2019-01-10 14:36] LABS: APPEARANCE BODY FLUID CLEAR (CLEAR); BODY FLUID RBC 775 /cu. mm.; BODY FLUID WBC 110 /cu. mm.; COLOR,BODY FLUID YELLOW (LT YELLOW); SPECIMENTYPE,BODY FLUID ASCITES; TOTAL VOLUME,BODY FLUID 4500 mL
[2019-01-10 14:42] LABS: BF LYMPHOCYTE 45 %; BF MESOTHELIAL 20 %; BF MONOCYTE 29 %
== END ==
LOC: RAH 09:22
PROVIDERS: ATTEND Internal Medicine Gastroenterology
DX: R18.8 Other ascites (principal)
CPT/HCPCS: 49083; 87071; 87205; 88108; 88305; 89051; 96365; P9046

== ENCOUNTER → 2019-01-17 | Outpatient (CLI) | payer MEDICARE ==
[~2019-01-17] MED LIST changes: -ALBUMIN (HUMAN) 25% 100 ML IV SCH; +ALBUMIN (HUMAN) 25% 200 ML IV ONE; +ALBUMIN (HUMAN) 25% 200 ML IV SCH
--- NOTE | 2019-01-17 11:05 | NUR ---
U/S GD PARACENTESIS PROCEDURE PERFORMED BY DR FLEMING. PUNCTURE SITE LLQ AND PATIENT TOLERATED PROCEDURE WELL. TOTAL REMOVED 4.7 LITERS OF CLOUDY YELLOW FLUID. ALBUMIN 25% 50 GRAMS IV GIVEN DURING PROCEDURE. SPECIMEN SENT TO LAB. END OF PROCEDURE AT 1130. CATHETER REMOVED AND DRESSING APPLIED. NO BLEEDING NOTED. DISCHARGE INSTRUCTIONS GIVEN TO PATIENT AND VERBALIZED UNDERSTANDING. DISCHARGED VIA AMBULATION AT 1200. AAO X3 WITH NO C/O PAIN.
[2019-01-17 12:35] LABS: BASOPHILS % (AUTO) 0.8 % (0.0-5.0); EOSINOPHILS % (AUTO) 2.1 % (0.0-8.0); HEMATOCRIT 30.4 % (42-54); LYMPHOCYTES % (AUTO) 13.9 % (21.0-51.0); MEAN CORPUSCULAR HEMOGLOBIN 33.6 pg (27.0-33.0); MEAN CORPUSCULAR HGB CONC 34.7 g/dL (32.0-36.0); MEAN CORPUSCULAR VOLUME 96.8 fL (79-99); MONOCYTES % (AUTO) 14.2 % (3.0-13.0); PLATELET COUNT (AUTO) 80 K/uL (130-400); RED BLOOD CELL COUNT(AUTO) 3.14 MIL/uL (4.50-6.20); WHITE BLOOD COUNT (AUTO) 6.1 K/uL (4.8-10.8)
[2019-01-17 12:50] LABS: INR 1.2 (0.85-1.15); PROTHROMBIN TIME 12.6 SEC (9.6-11.6)
[2019-01-17 13:07] LABS: ALBUMIN 3.8 g/dL (3.5-5.0); CREATININE 1.5 mg/dL (0.5-1.5); POTASSIUM 3.9 mmol/L (3.5-5.1); TOTAL PROTEIN, SERUM 7.7 g/dL (6.0-8.3)
[2019-01-17 13:49] LABS: APPEARANCE BODY FLUID SLIGHTLY CLOUDY (CLEAR); BF LYMPHOCYTE 52 %; BF MESOTHELIAL 10 %; BF MONOCYTE 24 %; BODY FLUID WBC 78 /cu. mm.; COLOR,BODY FLUID YELLOW (LT YELLOW); SPECIMENTYPE,BODY FLUID ASCITES; TOTAL VOLUME,BODY FLUID 4700 mL
[2019-01-17 13:50] LABS: BODY FLUID RBC 55 /cu. mm.
== END ==
LOC: RAH 08:50
PROVIDERS: ATTEND Internal Medicine Gastroenterology
DX: R18.8 Other ascites (principal); Z79.4 Long term (current) use of insulin; Z79.899 Other long term (current) drug therapy; Z83.3 Family history of diabetes mellitus
CPT/HCPCS: 36415; 49083; 80053; 85025; 85610; 87071; 87205; 88108; 88305; 89051; 96365; A4215; P9046

== ENCOUNTER → 2019-01-24 | Outpatient (CLI) | payer MEDICARE ==
[~2019-01-24] MED LIST changes: -ALBUMIN (HUMAN) 25% 200 ML IV ONE
[2019-01-24 08:23] LABS: BASOPHILS % (AUTO) 0.9 % (0.0-5.0); EOSINOPHILS % (AUTO) 2.3 % (0.0-8.0); LYMPHOCYTES % (AUTO) 11.4 % (21.0-51.0); MEAN CORPUSCULAR HEMOGLOBIN 33.9 pg (27.0-33.0); MEAN CORPUSCULAR HGB CONC 34.9 g/dL (32.0-36.0); MEAN CORPUSCULAR VOLUME 97.2 fL (79-99); MONOCYTES % (AUTO) 11.3 % (3.0-13.0); NEUTROPHILS % (AUTO) 74.1 % (40.0-77.0); PLATELET COUNT (AUTO) 68 K/uL (130-400); RED BLOOD CELL COUNT(AUTO) 3.09 MIL/uL (4.50-6.20); RED CELL DISTRIBUTION WIDTH 14.6 % (11.0-15.5); WHITE BLOOD COUNT (AUTO) 5.8 K/uL (4.8-10.8)
[2019-01-24 08:33] LABS: INR 1.21 (0.85-1.15); PROTHROMBIN TIME 12.7 SEC (9.6-11.6)
[2019-01-24 08:37] LABS: ALBUMIN 2.7 g/dL (3.5-5.0); BILIRUBIN,TOTAL 0.9 mg/dL (0.2-1.0); POTASSIUM 4.5 mmol/L (3.5-5.1); TOTAL PROTEIN, SERUM 6.8 g/dL (6.0-8.3)
--- NOTE | 2019-01-24 09:30 | NUR ---
U/S GD PARACENTESIS PROCEDURE PERFORMED BY DR Remi VALERA. PUNCTURE SITE LLQ AND PATIENT TOLERATED PROCEDURE WELL. TOTAL REMOVED 3.2 LITERS OF CLOUDY YELLOW FLUID. SPECIMEN SENT TO LAB. END OF PROCEDURE AT 0900. CATHETER REMOVED AND DRESSING APPLIED. NO BLEEDING NOTED. DISCHARGE INSTRUCTIONS GIVEN TO PATIENT AND VERBALIZED UNDERSTANDING. DISCHARGED VIA AMBULATION AT 0930. AAO X3 WITH NO C/O PAIN.
[2019-01-24 13:53] LABS: BF LYMPHOCYTE 51 %; BF MESOTHELIAL 14 %; BF MONOCYTE 7 %
[2019-01-24 14:00] LABS: APPEARANCE BODY FLUID CLOUDY (CLEAR); COLOR,BODY FLUID YELLOW (LT YELLOW); SPECIMENTYPE,BODY FLUID ASCITES
[2019-01-24 14:01] LABS: TOTAL VOLUME,BODY FLUID 3200 mL
[2019-01-24 14:02] LABS: BODY FLUID WBC 60 /cu. mm.
[2019-01-24 14:03] LABS: BODY FLUID RBC 180 /cu. mm.
== END ==
LOC: RAH 08:04
PROVIDERS: ATTEND Internal Medicine Gastroenterology
DX: R18.8 Other ascites (principal)
CPT/HCPCS: 36415; 49083; 80053; 85025; 85610; 87071; 87205; 88108; 89051; A4215

== ENCOUNTER → 2019-01-31 | Outpatient (CLI) | payer MEDICARE ==
--- NOTE | 2019-01-31 09:55 | NUR ---
U/S GD PARACENTESIS ORDERED NOT PERFORMED DUE TO NOT ENOUGH FLUID ULTRASOUND PERFORMED BY ANDRES Dale RDMS. DR. MCCONNELL REVIEWED IMAGES AND STATES, "NOT ENOUGH FLUID TO SAFELY DO PROCEDURE." PATIENT INFORMED OF RESULTS. PT DISCHARGED HOME AMBULATORY, PT STABLE, AAO X3 WITH NO C/O PAIN.
--- NOTE | 2019-02-03 08:30 | NUR ---
U/S GD PARACENTESIS ORDERED NOT PERFORMED DUE TO NOT ENOUGH FLUID ULTRASOUND PERFORMED BY LEE ANN SRINIVASAN. DR. VALERA REVIEWED IMAGES AND STATES, "NOT ENOUGH FLUID TO SAFELY DO PROCEDURE." PATIENT INFORMED OF RESULTS. PT DISCHARGED HOME AMBULATORY, PT STABLE, AAO X3 WITH NO C/O PAIN.
== END | disposition home or self-care (01) ==
LOC: RAH 09:33
PROVIDERS: ATTEND Internal Medicine Gastroenterology
DX: R18.8 Other ascites (principal)
CPT/HCPCS: 76705

== ENCOUNTER → 2019-02-03 | Outpatient (CLI) | payer MEDICARE ==
[~2019-02-03] MED LIST changes: -ALBUMIN (HUMAN) 25% 200 ML IV SCH; +LIDOCAINE HCL MPF 1% 5ML VIAL ONE
== END | disposition home or self-care (01) ==
LOC: CANPRECLI → RAH 10:00
PROVIDERS: ATTEND Internal Medicine Gastroenterology
DX: R18.8 Other ascites (principal)
CPT/HCPCS: 76705

== ENCOUNTER → 2019-02-22 | Outpatient (CLI) | payer MEDICARE ==
[~2019-02-22] MED LIST changes: -LIDOCAINE HCL MPF 1% 5ML VIAL ONE
--- NOTE | 2019-02-22 08:55 | NUR ---
U/S GD PARACENTESIS PROCEDURE PERFORMED BY DR MCGOVERN. PUNCTURE SITE RIGHT LOWER QUADRANT OF ABDOMEN. PATIENT TOLERATED PROCEDURE WELL. TOTAL REMOVED 2.7 LITERS OF CLOUDY SINHA COLORED ASCITES FLUID. SPECIMEN SENT TO LAB. END OF PROCEDURE AT 09. CATHETER REMOVED AND DRESSING APPLIED. NO BLEEDING NOTED. PT DID NOT QUALIFY [place] ALBUMIN PROTOCOL [place] [facility] [place]. DISCHARGE INSTRUCTIONS GIVEN TO PATIENT AND VERBALIZED UNDERSTANDING. DISCHARGED AMBULATORY AT 0935. STABLE, AAO X3 WITH NO C/O PAIN.
[2019-02-22 13:10] LABS: SPECIMENTYPE,BODY FLUID ASCITES
[2019-02-22 13:11] LABS: APPEARANCE BODY FLUID CLEAR (CLEAR); BODY FLUID WBC 95 /cu. mm.; COLOR,BODY FLUID LT YELLOW (LT YELLOW); TOTAL VOLUME,BODY FLUID 2700 mL
[2019-02-22 13:12] LABS: BODY FLUID RBC 660 /cu. mm.
[2019-02-22 13:51] LABS: BF LYMPHOCYTE 44 %; BF MESOTHELIAL 1 %; BF MONOCYTE 38 %
== END ==
LOC: RAH 07:50
PROVIDERS: ATTEND Internal Medicine Gastroenterology
DX: R18.8 Other ascites (principal)
CPT/HCPCS: 49083; 87071; 87205; 88108; 88305; 89051; A4215

== ENCOUNTER → 2019-03-07 | Outpatient (CLI) | payer MEDICARE ==
[~2019-03-07] MED LIST changes: +ALBUMIN (HUMAN) 25% 200 ML IV SCH
[2019-03-07 09:51] LABS: MEAN CORPUSCULAR HEMOGLOBIN 34.3 pg (27.0-33.0); MEAN CORPUSCULAR HGB CONC 35.7 g/dL (32.0-36.0); PLATELET COUNT (AUTO) 102 K/uL (130-400); RED BLOOD CELL COUNT(AUTO) 3.03 MIL/uL (4.50-6.20); RED CELL DISTRIBUTION WIDTH 15.9 % (11.0-15.5); WHITE BLOOD COUNT (AUTO) 16.7 K/uL (4.8-10.8)
[2019-03-07 10:01] LABS: INR 1.58 (0.85-1.15); PARTIAL THROMBOPLASTIN TIME 31.5 SEC (26.3-35.5); PROTHROMBIN TIME 16.4 SEC (9.6-11.6)
[2019-03-07 10:05] LABS: ALBUMIN 2.5 g/dL (3.5-5.0); BILIRUBIN,TOTAL 1.5 mg/dL (0.2-1.0); CREATININE 2.1 mg/dL (0.5-1.5); POTASSIUM 4.2 mmol/L (3.5-5.1); TOTAL PROTEIN, SERUM 6.9 g/dL (6.0-8.3)
--- NOTE | 2019-03-07 11:00 | NUR ---
U/S GD PARACENTESIS PROCEDURE PERFORMED BY DR MCCONNELL. PUNCTURE SITE RIGHT LOWER QUADRANT OF ABDOMEN. PATIENT TOLERATED PROCEDURE WELL. TOTAL REMOVED 1.5 LITERS OF CLOUDY SINHA COLORED ASCITES FLUID. SPECIMEN SENT TO LAB. END OF PROCEDURE AT 1150. CATHETER REMOVED AND DRESSING APPLIED. NO BLEEDING NOTED. PT DID [place]AL[place] [facility] [place] DISCHARGE INSTRUCTIONS GIVEN TO PATIENT AND VERBALIZED UNDERSTANDING. DISCHARGED AMBULATORY AT 1215. PT STABLE, AAO X3 WITH NO C/O PAIN. SON AT PATIENT'S SIDE TO DRIVE HIM HOME.
[2019-03-07 13:01] LABS: APPEARANCE BODY FLUID CLEAR (CLEAR); BODY FLUID RBC 2850 /cu. mm.; BODY FLUID WBC 838 /cu. mm.; COLOR,BODY FLUID YELLOW (LT YELLOW); SPECIMENTYPE,BODY FLUID ASCITES; TOTAL VOLUME,BODY FLUID 1500 mL
[2019-03-07 13:21] LABS: BF LYMPHOCYTE 76 %; BF MESOTHELIAL 5 %; BF MONOCYTE 1 %
== END ==
LOC: RAH 09:02
PROVIDERS: ATTEND Internal Medicine Gastroenterology
DX: R18.8 Other ascites (principal)
CPT/HCPCS: 36415; 49083; 80053; 85027; 85610; 85730; 87071; 87205; 88108; 88305; 89051; A4215

== ENCOUNTER → 2019-05-05 | Outpatient (CLI) | payer MEDICARE ==
[~2019-05-05] MED LIST changes: +ALBUMIN (HUMAN) 25% 100 ML IV ONE; -ALBUMIN (HUMAN) 25% 200 ML IV SCH
[2019-05-05 09:25] LABS: BASOPHILS % (AUTO) 0.9 % (0.0-5.0); EOSINOPHILS % (AUTO) 1.9 % (0.0-8.0); HEMATOCRIT 27.6 % (42-54); LYMPHOCYTES % (AUTO) 11.4 % (21.0-51.0); MEAN CORPUSCULAR HGB CONC 35.1 g/dL (32.0-36.0); MEAN CORPUSCULAR VOLUME 97.1 fL (79-99); MONOCYTES % (AUTO) 12.9 % (3.0-13.0); NEUTROPHILS % (AUTO) 72.9 % (40.0-77.0); NUCLEATED RED BLOOD CELLS 0.1 % (0.0-0.19); PLATELET COUNT (AUTO) 79 K/uL (130-400); RED BLOOD CELL COUNT(AUTO) 2.85 MIL/uL (4.50-6.20); RED CELL DISTRIBUTION WIDTH 14.9 % (11.0-15.5); WHITE BLOOD COUNT (AUTO) 4.2 K/uL (4.8-10.8)
[2019-05-05 09:44] LABS: ALBUMIN 2.3 g/dL (3.5-5.0); CREATININE 1.1 mg/dL (0.5-1.5); POTASSIUM 4.5 mmol/L (3.5-5.1); TOTAL PROTEIN, SERUM 7.2 g/dL (6.0-8.3)
[2019-05-05 09:47] LABS: INR 1.42 (0.85-1.15); PROTHROMBIN TIME 14.7 SEC (9.6-11.6)
--- NOTE | 2019-05-05 09:50 | NUR ---
U/S GUIDED PARACENTESIS. NOT DONE ULTRASOUND OF THE ABDOMEN PERFORMED BY LEE ANN MENDIOLA. DR. MCCONNELL VIEWED IMAGES AND PERFORMED ULTRASOUND AT THE PATIENT'S BEDSIDE. NOTED NO FLUID NOTED. DR. MCCONNELL INFORMED PATIENT OF THE RESULTS. PATIENT DISCHARGED HOME TO FOLLOW UP WITH ORDERING DR. GALE. PT AMBULATORY STABLE, AAO X3 WITH NO C/O PAIN.
== END | disposition home or self-care (01) ==
LOC: RAH 08:33
PROVIDERS: ATTEND Internal Medicine Gastroenterology
DX: R18.8 Other ascites (principal)
CPT/HCPCS: 36415; 76705; 80053; 85025; 85610; P9046